=== PATIENT | male | born 1975 | race Hispanic/Latino ===

== ENCOUNTER 2018-03-01 06:59 | Observation (INO) | payer SELFPAY ==
[2018-03-01] MEDS ORDERED: Sodium Chloride 0.9% 1,000 ML IV STA ×3 (07:28→10:25)
--- NOTE | 2018-03-01 07:50 | ED PDOC ---
HPI: Altered Mental Status Time Seen by Provider: 03/01/18 07:09 Chief Complaint (Nursing): Altered Mental Status Chief Complaint (Provider): Aggression History Per: Patient, EMS History/Exam Limitations: Clinical Condition Onset/Duration Of Symptoms: Mins (prior to arrival) Additional Complaint(s): 42 year old male presents to the emergency department via EMS after he reports what happened was he threw a remote at the television while arguing with his , prompting her to call the ambulance. Per EMS and his staff however, the patient may have taken drugs, but it is unclear what type. Patient currently denies taking drugs or alcohol. He also denies suicidal and homicidal ideation. Denies any chest pain, dyspnea, weakness, headaches, dizziness, fall, abd pain , nausea, vomit, diarrhea. No leg or arm pain. No back pain. PMD: none provided Past Medical History Reviewed: Historical Data, Nursing Documentation, Vital Signs Vital Signs: Last Vital Signs Temp 98.2 F 03/01/18 07:03 Pulse 128 H 03/01/18 07:17 Resp 27 H 03/01/18 07:17 BP 136/84 03/01/18 07:17 Pulse Ox 95 03/01/18 07:17 - Medical History PMH: Denies: Bipolar Disorder, Schizophrenia - Surgical History Surgical History: Cholecystectomy - Family History Family History: States: Unknown Family Hx - Social History Current smoker - smoking cessation education provided: No Alcohol: Social Drugs: Denies - Allergies Allergies/Adverse Reactions: Allergies Allergy/AdvReac Type Severity Reaction Status Date / Time No Known Allergies Allergy Verified 03/01/18 07:24 Review of Systems ROS Statement: Except As Marked, All Systems Reviewed And Found Negative Constitutional: Negative for: Weakness Eyes: Negative for: Vision Change ENT: Negative for: Nose Congestion Cardiovascular: Negative for: Chest Pain Respiratory: Negative for: Shortness of Breath Musculoskeletal: Negative for: Neck Pain, Shoulder Pain Neurological: Negative for: Weakness Physical Exam - Reviewed Nursing Documentation Reviewed: Yes Vital Signs Reviewed: Yes - Physical Exam Appears: Positive for: Uncomfortable Head Exam: Positive for: ATRAUMATIC, NORMAL INSPECTION, NORMOCEPHALIC Skin: Positive for: Normal Color, Warm, Dry Eye Exam: Positive for: EOMI, Normal appearance, PERRL ENT: Positive for: Normal ENT Inspection Neck: Positive for: Normal, Painless ROM Cardiovascular/Chest: Positive for: Regular Rate, Rhythm. Negative for: Murmur Respiratory: Positive for: Normal Breath Sounds. Negative for: Respiratory Distress Gastrointestinal/Abdominal: Positive for: Other (6cm abrasion to left lateral abdomen with ecchymosis, but nontender). Negative for: Tenderness Back: Positive for: Normal Inspection. Negative for: L CVA Tenderness, R CVA Tenderness Extremity: Positive for: Normal ROM Neurologic/Psych: Positive for: Alert, Oriented, Other (follows most commands, moving all extremities) - Laboratory Results Result Diagrams: 03/01/18 07:40 03/01/18 07:40 Interpretation Of Abn Labs: no acute - ECG ECG: Positive for: Interpreted By Me, Viewed By Me ECG Rhythm: Positive for: Normal QRS, Normal ST Segment, Sinus Tachycardia Interpretation Of Abn EKG: repeat ekg; sinus tach, qtc 490 from old to new 511; qrs remains 102 O2 Sat by Pulse Oximetry: 95 (RA) Pulse Ox Interpretation: Normal - Radiology X-Ray: Read By Radiologist X-Ray Interpretation: No Acute Disease - CT Scan/US ct Other Rad Studies (CT/US): Read By Radiologist Other Rad Interpretation: no acute - Progress ED Course And Treament: 1035: Pt. present now. States pt. mother sent him some meds to take for being sad and stressed. She has bipolar and not sure what meds she sent him. Pt. now admits to taking unasom 7 pills 12 hrs ago. Denies taking any other drugs or meds. Pt. found a suicidal note. Spoke with poison control. Repeat EKG 1200. Continue monitoring with symptomatic tx. Bicarb if repeat ekg is 120 or greater qrs. 1230: Spoke with Dr. Casey. Will admit. Monitor. Tele. Stable. - Critical Care Total Time (In Min): 30 Documented Critical Care: Time excludes all time spent performint seperately billable procedures Medical Decision Making Medical Decision Making: Time: 7:27 Initial Plan: --CT Abd/Pel --C-spine w/o contrast --CT Head w/o contrast --EKG --Alcohol Serum --CMP --Drug Screen --Trop 1 --Urine dip --CBC with differential --Chest Portable XR --Sodium Chloride 0.9% 1000ml IV --POC --1:1 Observation Time: 8:45 Chest XR FINDINGS: LUNGS: No active pulmonary disease. PLEURA: No significant pleural effusion identified, no pneumothorax apparent. CARDIOVASCULAR: Normal. OSSEOUS STRUCTURES: No significant abnormalities. VISUALIZED UPPER ABDOMEN: Normal. OTHER FINDINGS: None. IMPRESSION: No active disease. Time: 8:[address] FINDINGS: HEMORRHAGE: No intracranial hemorrhage. BRAIN: No mass effect or edema. No atrophy or chronic microvascular ischemic changes. VENTRICLES: Unremarkable. No hydrocephalus. CALVARIUM: Unremarkable. PARANASAL SINUSES: Right worse than left bilateral maxillary sinus mucosal thickening. Right sphenoid sinus secretions. Bilateral ortega bullosa MASTOID AIR CELLS: Unremarkable as visualized. No inflammatory changes. OTHER FINDINGS: None. IMPRESSION: No acute intracranial pathology. Sinus disease as described above. Time: 8:52 Abd/Pelvis CT FINDINGS: LOWER THORAX: Unremarkable. LIVER: Unremarkable. No gross lesion or ductal dilatation. GALLBLADDER AND BILE DUCTS: Prior cholecystectomy and surgical clips in place. PANCREAS: Unremarkable. No gross lesion or ductal dilatation. SPLEEN: Unremarkable. ADRENALS: Left adrenal 1.0 x 0.8 cm adenoma (3 HU). KIDNEYS AND URETERS: Unremarkable. No hydronephrosis. No solid mass. VASCULATURE: Unremarkable. No aortic aneurysm. BOWEL: Unremarkable. No obstruction. No gross mural thickening. APPENDIX: Unremarkable. Normal appendix. PERITONEUM: Patchy infiltration of the left lateral abdominal wall subcutaneous soft tissues. No free fluid. No free air. LYMPH NODES: Unremarkable. No enlarged lymph nodes. BLADDER: Unremarkable. REPRODUCTIVE: Unremarkable. BONES: No acute fracture. OTHER FINDINGS: None. IMPRESSION: Patchy infiltration of the left lateral abdominal wall subcutaneous soft tissues. No evidence of acute traumatic injury to the abdomen and pelvis. Incidental findings as above Time: 8:56 C-sp[address] FINDINGS: VERTEBRAE: No fracture. Normal alignment. No destructive bony lesion. DISCS/SPINAL CANAL/NEURAL FORAMINA: No significant central canal or neural foraminal stenosis. Discs heights are grossly preserved. PARASPINAL SOFT TISSUES: Unremarkable. OTHER FINDINGS: None. IMPRESSION: Unremarkable CT of the cervical spine. Scribe Attestation: Documented by Yanely Lopez, acting as a scribe for Dr. Sarath Banuelos. Provider Scribe Attestation: All medical record entries made by the Scribe were at my direction and personally dictated by me. I have reviewed the chart and agree that the record accurately reflects my personal performance of the history, physical exam, medical decision making, and the department course for this patient. I have also personally directed, reviewed, and agree with the discharge instructions and disposition. Disposition - Clinical Impression Clinical Impression: Overdose, Suicidal thoughts - Patient ED Disposition Is Patient to be Admitted: No Counseled Patient/Family Regarding: Studies Performed, Diagnosis - Disposition Disposition: Routine/Home Disposition Time: 12:00 Condition: STABLE - Pt Status Changed To: Hospital Disposition Of: Observation - POA Present On Arrival: Falls Or Trauma
[2018-03-01 08:00] LABS: BASO % 0.3 % (0.0-2.0); LYMPH # 1.1 K/uL (1.0-4.3); LYMPH % 9.3 % (20.0-40.0); MEAN CELL VOLUME 90.5 fl (80.0-94.0); MEAN CORPUSCULAR HEMOGLOBIN 31.3 pg (27.0-31.0); MEAN CORPUSCULAR HGB CONC 34.6 g/dL (33.0-37.0); MONO # 0.6 K/uL (0.0-0.8); NEUT # 10.1 K/uL (1.8-7.0); NEUT % 85.4 % (50.0-75.0); PLATELET COUNT 269 K/uL (130-400); RBC 5.12 Mil/uL (4.40-5.90); RED CELL DISTRIBUTION WIDTH 13.4 % (11.5-14.5); WHITE BLOOD COUNT 11.9 K/uL (4.8-10.8)
[2018-03-01 08:05] LABS: ALB/GLOB RATIO 1.5 (1.0-2.1); ALBUMIN 4.7 g/dL (3.5-5.0); ALT/SGPT 63 U/L (21-72); AST/SGOT 47 U/L (17-59); BLOOD UREA NITROGEN 15 mg/dl (9-20); CALCIUM 9.6 mg/dL (8.4-10.2); GFR AFRICAN-AMERICAN > 60; GFR NON-AFRICAN AMERICAN > 60
--- NOTE | 2018-03-01 08:46 | RAD ---
HISTORY: dyspnea COMPARISON: No prior. FINDINGS: LUNGS: No active pulmonary disease. PLEURA: No significant pleural effusion identified, no pneumothorax apparent. CARDIOVASCULAR: Normal. OSSEOUS STRUCTURES: No significant abnormalities. VISUALIZED UPPER ABDOMEN: Normal. OTHER FINDINGS: None. IMPRESSION: No active disease.
--- NOTE | 2018-03-01 08:54 | CT ---
PROCEDURE: CT Abdomen and Pelvis without intravenous contrast HISTORY: abd trauma COMPARISON: None. TECHNIQUE: Contiguous images were obtained from the domes of the diaphragms to the upper thighs without the administration of intravenous contrast. Oral contrast was not administered. Radiation dose: Total exam DLP = 886.6 mGy-cm. This CT exam was performed using one or more of the following dose reduction techniques: Automated exposure control, adjustment of the mA and/or kV according to patient size, and/or use of iterative reconstruction technique. FINDINGS: LOWER THORAX: Unremarkable. LIVER: Unremarkable. No gross lesion or ductal dilatation. GALLBLADDER AND BILE DUCTS: Prior cholecystectomy and surgical clips in place. PANCREAS: Unremarkable. No gross lesion or ductal dilatation. SPLEEN: Unremarkable. ADRENALS: Left adrenal 1.0 x 0.8 cm adenoma (3 HU). KIDNEYS AND URETERS: Unremarkable. No hydronephrosis. No solid mass. VASCULATURE: Unremarkable. No aortic aneurysm. BOWEL: Unremarkable. No obstruction. No gross mural thickening. APPENDIX: Unremarkable. Normal appendix. PERITONEUM: Patchy infiltration of the left lateral abdominal wall subcutaneous soft tissues. No free fluid. No free air. LYMPH NODES: Unremarkable. No enlarged lymph nodes. BLADDER: Unremarkable. REPRODUCTIVE: Unremarkable. BONES: No acute fracture. OTHER FINDINGS: None. IMPRESSION: Patchy infiltration of the left lateral abdominal wall subcutaneous soft tissues. No evidence of acute traumatic injury to the abdomen and pelvis. Incidental findings as above
--- NOTE | 2018-03-01 08:55 | CT ---
PROCEDURE: CT HEAD WITHOUT CONTRAST. HISTORY: headache COMPARISON: None available. TECHNIQUE: Axial computed tomography images were obtained through the head/brain without intravenous contrast. Radiation dose: Total exam DLP = 1078.4 mGy-cm. This CT exam was performed using one or more of the following dose reduction techniques: Automated exposure control, adjustment of the mA and/or kV according to patient size, and/or use of iterative reconstruction technique. FINDINGS: HEMORRHAGE: No intracranial hemorrhage. BRAIN: No mass effect or edema. No atrophy or chronic microvascular ischemic changes. VENTRICLES: Unremarkable. No hydrocephalus. CALVARIUM: Unremarkable. PARANASAL SINUSES: Right worse than left bilateral maxillary sinus mucosal thickening. Right sphenoid sinus secretions. Bilateral ortega bullosa MASTOID AIR CELLS: Unremarkable as visualized. No inflammatory changes. OTHER FINDINGS: None. IMPRESSION: No acute intracranial pathology. Sinus disease as described above.
--- NOTE | 2018-03-01 08:57 | CT ---
PROCEDURE: CT Cervical Spine without contrast HISTORY: neck pain COMPARISON: None available. TECHNIQUE: Axial computed tomography images were obtained of the cervical spine without the use of intravenous contrast. Coronal and sagittal reformatted images were created and reviewed. Radiation dose: Total exam DLP = 576.2 mGy-cm. This CT exam was performed using one or more of the following dose reduction techniques: Automated exposure control, adjustment of the mA and/or kV according to patient size, and/or use of iterative reconstruction technique. FINDINGS: VERTEBRAE: No fracture. Normal alignment. No destructive bony lesion. DISCS/SPINAL CANAL/NEURAL FORAMINA: No significant central canal or neural foraminal stenosis. Discs heights are grossly preserved. PARASPINAL SOFT TISSUES: Unremarkable. OTHER FINDINGS: None. IMPRESSION: Unremarkable CT of the cervical spine.
[2018-03-01 09:31] LABS: ANISOCYTOSIS SLIGHT; LYMPHOCYTE 11 % (20-50); MONOCYTE 4 % (0-10); NEUTROPHIL 85 % (42-75); OVALOCYTES SLIGHT; PLATELET ESTIMATE NORMAL (NORMAL); TEARDROP CELLS SLIGHT; TOTAL CELLS COUNTED 100
[2018-03-01 09:32] LABS: LARGE PLATELETS PRESENT
[2018-03-01 09:56] LABS: PHENCYCLIDINE, UR NEGATIVE (NEGATIVE)
[2018-03-01 10:00] LABS: BARBITURATES, UR NEGATIVE (NEGATIVE); BENZODIAZEPINES, UR POSITIVE (NEGATIVE); OPIATES, UR NEGATIVE (NEGATIVE)
--- NOTE | 2018-03-01 10:10 | CARD ---
APPROVED REPORT EKG Measurement Heart [id number] <Conclusion> Sinus tachycardia Otherwise normal ECG
[2018-03-01 11:00] LABS: ACETAMINOPHEN < 10.0 ug/ml (10.0-30.0); SALICYLATE < 1.0 mg/dl
--- NOTE | 2018-03-01 12:51 | CP.PCM.HP ---
History of Present Illness - History of Present Illness History of Present Illness: 42 yo male with no significant PMH brought in by EMS with possible drug overdosed. Apparently took several pills of Unisom plus Ativan and Klonopin. Patient however continue changing his statement. Patient denied any complaint but ER physician noted some mild confusion and was tachycardic. Denied being suicidal. Present on Admission - Present on Admission Any Indicators Present on Admission: No History of DVT/PE: No History of Uncontrolled Diabetes: No Urinary Catheter: No Decubitus Ulcer Present: No Review of Systems - Review of Systems All systems: reviewed and no additional remarkable complaints except (aside from those mentioned above, 12 point system review were negative by me) Past Patient History - Tetanus Immunizations Tetanus Immunization: Unknown - Past Medical History & Family History Past Medical History?: No Past Family History: Reviewed and not pertinent - Past Social History Smoking Status: Never Smoked Chewing Tobacco Use: No Cigar Use: No Alcohol: Social Drugs: Denies Home Situation {Lives}: With Family - PSYCHIATRIC Hx Bipolar Disorder: No Hx Schizophrenia: No - SURGICAL HISTORY Hx Cholecystectomy: Yes - ANESTHESIA Hx Anesthesia: Yes Hx Anesthesia Reactions: No Meds Allergies/Adverse Reactions: Allergies Allergy/AdvReac Type Severity Reaction Status Date / Time No Known Allergies Allergy Verified 03/01/18 07:24 Physical Exam - Constitutional Appears: No Acute Distress - Head Exam Head Exam: ATRAUMATIC - Eye Exam Eye Exam: absent: Scleral icterus - ENT Exam ENT Exam: Mucous Membranes Moist - Neck Exam Neck exam: Negative for: Meningismus - Respiratory Exam Respiratory Exam: absent: Rales, Rhonchi, Wheezes, Respiratory Distress - Cardiovascular Exam Cardiovascular Exam: Tachycardia - GI/Abdominal Exam GI & Abdominal Exam: Soft. absent: Tenderness - Rectal Exam Rectal Exam: Deferred - Extremities Exam Extremities exam: Negative for: calf tenderness, pedal edema - Back Exam Back exam: NORMAL INSPECTION - Neurological Exam Neurological exam: Alert, Oriented x3 - Psychiatric Exam Psychiatric exam: Normal Affect - Skin Skin Exam: Dry, Intact Results - Vital Signs Recent Vital Signs: Last Vital Signs Temp 98.2 F 03/01/18 07:03 Pulse 111 H 03/01/18 12:11 Resp 16 03/01/18 12:11 BP 147/87 03/01/18 12:11 Pulse Ox 95 03/01/18 12:42 - Labs Result Diagrams: 03/01/18 07:40 03/01/18 07:40 Labs: Laboratory Results - last 24 hr 03/01/18 03/01/18 03/01/18 07:40 07:40 07:40 WBC 11.9 H RBC 5.12 Hgb 16.0 Hct 46.3 MCV 90.5 MCH 31.3 H MCHC 34.6 RDW 13.4 Plt Count 269 MPV 7.0 L Neut % (Auto) 85.4 H Lymph % (Auto) 9.3 L [place] % (Auto) 5.0 Eos % (Auto) 0.0 Baso % (Auto) 0.3 Neut # (Auto) 10.1 H Lymph # (Auto) 1.1 [place] # (Auto) 0.6 Eos # (Auto) 0.0 Baso # (Auto) 0.0 Neutrophils % (Manual) 85 H Lymphocytes % (Manual) 11 L Monocytes % (Manual) 4 Platelet Estimate Normal Large Platelets Present Anisocytosis (manual) Slight Macrocytosis (manual) Slight Tear Drop Cells Slight Ovalocytes Slight Sodium 140 Potassium 3.7 Chloride 98 Carbon Dioxide 22 Anion Gap 24 H BUN 15 Creatinine 1.0 Est GFR ( Amer) > 60 Est GFR (Non-Af Amer) > 60 POC Glucose (mg/dL) Random Glucose 104 Calcium 9.6 Magnesium Total Bilirubin 1.1 AST 47 ALT 63 Alkaline Phosphatase 67 Troponin I 0.0180 Total Protein 7.8 Albumin 4.7 Globulin 3.1 Albumin/Globulin Ratio 1.5 Salicylates < 1.0 Urine Opiates Screen Urine Methadone Screen Acetaminophen < 10.0 L Ur Barbiturates Screen Ur Phencyclidine Scrn Ur Amphetamines Screen U Benzodiazepines Scrn U Oth Cocaine Metabols U Cannabinoids Screen Alcohol, Quantitative < 10 03/01/18 03/01/18 03/01/18 08:16 09:20 10:54 WBC RBC Hgb Hct MCV MCH MCHC RDW Plt Count MPV Neut % (Auto) Lymph % (Auto) [place] % (Auto) Eos % (Auto) Baso % (Auto) Neut # (Auto) Lymph # (Auto) [place] # (Auto) Eos # (Auto) Baso # (Auto) Neutrophils % (Manual) Lymphocytes % (Manual) Monocytes % (Manual) Platelet Estimate Large Platelets Anisocytosis (manual) Macrocytosis (manual) Tear Drop Cells Ovalocytes Sodium Potassium Chloride Carbon Dioxide Anion Gap BUN Creatinine Est GFR ( Amer) Est GFR (Non-Af Amer) POC Glucose (mg/dL) 89 Random Glucose Calcium Magnesium 1.8 Total Bilirubin AST ALT Alkaline Phosphatase Troponin I Total Protein Albumin Globulin Albumin/Globulin Ratio Salicylates Urine Opiates Screen Negative Urine Methadone Screen Negative Acetaminophen Ur Barbiturates Screen Negative Ur Phencyclidine Scrn Negative Ur Amphetamines Screen Negative U Benzodiazepines Scrn Positive U Oth Cocaine Metabols Negative U Cannabinoids Screen Negative Alcohol, Quantitative Assessment & Plan - Assessment and Plan (Free Text) Assessment: 42 yo male with no significant PMH brought in by EMS with possible drug overdosed. Apparently took several pills of Unisom plus Ativan and Klonopin. Patient however continue changing his statement. Patient denied any complaint but ER physician noted some mild confusion and was tachycardic. Denied being suicidal. 1. Drug Overdosed 24 hr observation drug screen positive for Benzodiazephines continue IV hydration psyche consult monitor in telemetry
[2018-03-01] MEDS ORDERED: Sodium Chloride 0.9% 1,000 ML IV SCH (13:00)
[2018-03-02 05:32] LABS: BASO % 0.4 % (0.0-2.0); EOS # 0.2 K/uL (0.0-0.7); EOS % 2.4 % (0.0-4.0); LYMPH # 2.2 K/uL (1.0-4.3); LYMPH % 26.4 % (20.0-40.0); MEAN CELL VOLUME 91.8 fl (80.0-94.0); MEAN CORPUSCULAR HEMOGLOBIN 31.8 pg (27.0-31.0); MEAN CORPUSCULAR HGB CONC 34.7 g/dL (33.0-37.0); MEAN PLATELET VOLUME 7.1 fl (7.2-11.7); MONO # 1.2 K/uL (0.0-0.8); MONO % 13.9 % (0.0-10.0); NEUT # 4.8 K/uL (1.8-7.0); NEUT % 56.9 % (50.0-75.0); NRBC % 0.1 % (0.0-0.0); RBC 4.41 Mil/uL (4.40-5.90); RED CELL DISTRIBUTION WIDTH 13.4 % (11.5-14.5); WHITE BLOOD COUNT 8.5 K/uL (4.8-10.8)
[2018-03-02 05:45] LABS: BLOOD UREA NITROGEN 10 mg/dl (9-20); CALCIUM 8.4 mg/dL (8.4-10.2); GFR AFRICAN-AMERICAN > 60; GFR NON-AFRICAN AMERICAN > 60
--- NOTE | 2018-03-02 07:18 | CARD ---
APPROVED REPORT EKG Measurement Heart [id number] <Conclusion> Sinus tachycardia Otherwise normal ECG
[2018-03-02 08:21] VITALS: RESP 20
[2018-03-02] MEDS ORDERED: Enoxaparin 40 mg Syringe SC SCH (09:00)
[2018-03-02] MEDS ORDERED: Potassium Chloride 20 mEq ER Tab PO ONE (10:52)
--- NOTE | 2018-03-02 12:00 | CP.PCM.CON ---
History of Present Illness - History of Present Illness History of Present Illness: pt is 42 yo male without formal psychiatric diagnosis or treatment , brought in by EMS with possible drug overdosed. Apparently took several pills of Unisom plus Ativan and Klonopin.pt reported that this is his mother's medications , he decided to use as he was feeling stressed out in his job, having sleep problems with early insomnia and only took the medications in an attempt to relax and sleep pt reported he has history of generalized anxiety disorder, has been seen by psychiatrist 7 years ago, placed on klonopin and , currently not in treatment for insurance issues reported has history of alcohol use started at age 18, currently binge drinks which resulted in conflict between him and his current stressors include work stress financial difficulties , and marital conflict with plan to seek marital counseling, pt denied any previous suicidal attempts, no history of previous psychiatric hospitalizations, no current changes in appetite , no manic or psychotic symptoms, no history of blackouts or seizures related to alcohol use collateral information obtained from by bed side upon patient consent reported pt has been using increasing amounts of alcohol lately , but denied any concerns in reference to depression or possible suicide attempt stating pt possibly abusing his mother's medications to treat his insomnia Past Patient History - Tetanus Immunizations Tetanus Immunization: Unknown - Past Medical History & Family History Past Medical History?: No - Past Social History Smoking Status: Never Smoked - MUSCULOSKELETAL/RHEUMATOLOGICAL Hx Falls: No - PSYCHIATRIC Hx Psychophysiologic Disorder: Yes Hx Anxiety: Yes Hx Depression: Yes Hx Substance Use: No - SURGICAL HISTORY Hx Cholecystectomy: Yes - ANESTHESIA Hx Anesthesia: Yes Hx Anesthesia Reactions: No Meds Allergies/Adverse Reactions: Allergies Allergy/AdvReac Type Severity Reaction Status Date / Time No Known Allergies Allergy Verified 03/01/18 07:24 - Medications Medications: Current Medications Enoxaparin Sodium (Lovenox) 40 mg SC DAILY CAROLE PRN Reason: Protocol Last Admin: 03/02/18 10:45 Dose: 40 mg Sodium Chloride (Sodium Chloride 0.9%) 1,000 mls @ 200 mls/hr IV .Q5H [facility] Last Admin: 03/01/18 13:40 Dose: 200 mls/hr Physical Exam - Psychiatric Exam Additional comments: pt seen in bed calm cooperative, good eye contact, anxious mood and affect , speech normal thought form coherent denied any current suicidal or homicidal ideation, denied perceptual disturbances, non elicited , alert awake ox3 fair insight and judgment Results - Vital Signs Recent Vital Signs: Last Vital Signs Temp 98.1 F 03/02/18 08:20 Pulse 94 H 03/02/18 08:20 Resp 20 03/02/18 08:20 BP 143/87 03/02/18 08:20 Pulse Ox 97 03/02/18 08:20 - Labs Result Diagrams: 03/02/18 04:55 03/02/18 04:55 Labs: Laboratory Results - last 24 hr 03/02/18 03/02/18 04:55 04:55 WBC 8.5 RBC 4.41 Hgb 14.0 D Hct 40.5 MCV 91.8 MCH 31.8 H MCHC 34.7 RDW 13.4 Plt Count 207 MPV 7.1 L Neut % (Auto) 56.9 Lymph % (Auto) 26.4 [place] % (Auto) 13.9 H Eos % (Auto) 2.4 Baso % (Auto) 0.4 Neut # (Auto) 4.8 Lymph # (Auto) 2.2 [place] # (Auto) 1.2 H Eos # (Auto) 0.2 Baso # (Auto) 0.0 Sodium 139 Potassium 3.4 L Chloride 104 Carbon Dioxide 26 Anion Gap 12 BUN 10 Creatinine 1.1 Est GFR ( Amer) > 60 Est GFR (Non-Af Amer) > 60 Random Glucose 93 Calcium 8.4 Assessment & Plan - Assessment and Plan (Free Text) Assessment: generalized anxiety disorder alcohol use disorder 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
[2018-03-02 12:29] VITALS: BP 136/87; PULSE 89; TEMP 98.4; O2SAT 96
--- NOTE | 2018-03-02 12:34 | CP.PCM.DIS ---
Provider - Provider Date of Admission: 03/01/18 13:22 Attending physician: Alvin Casey MD Consults: Dr Weinstein Time Spent in preparation of Discharge (in minutes): 25 Diagnosis - Discharge Diagnosis (1) Suicidal thoughts Status: Acute Comment: need follow up on psychiatry clinic (2) Alcoholism /alcohol abuse Status: Acute Comment: referral to AA arranged by [facility] Course - Lab Results Lab Results: Most Recent Lab Values WBC 8.5 K/uL (4.8-10.8) 03/02/18 04:55 RBC 4.41 Mil/uL (4.40-5.90) 03/02/18 04:55 Hgb 14.0 g/dL (12.0-18.0) D 03/02/18 04:55 Hct 40.5 % (35.0-51.0) 03/02/18 04:55 MCV 91.8 fl (80.0-94.0) 03/02/18 04:55 MCH 31.8 pg (27.0-31.0) H 03/02/18 04:55 MCHC 34.7 g/dL (33.0-37.0) 03/02/18 04:55 RDW 13.4 % (11.5-14.5) 03/02/18 04:55 Plt Count 207 K/uL (130-400) 03/02/18 04:55 MPV 7.1 fl (7.2-11.7) L 03/02/18 04:55 Neut % (Auto) 56.9 % (50.0-75.0) 03/02/18 04:55 Lymph % (Auto) 26.4 % (20.0-40.0) 03/02/18 04:55 [place] % (Auto) 13.9 % (0.0-10.0) H 03/02/18 04:55 Eos % (Auto) 2.4 % (0.0-4.0) 03/02/18 04:55 Baso % (Auto) 0.4 % (0.0-2.0) 03/02/18 04:55 Neut # (Auto) 4.8 K/uL (1.8-7.0) 03/02/18 04:55 Lymph # (Auto) 2.2 K/uL (1.0-4.3) 03/02/18 04:55 [place] # (Auto) 1.2 K/uL (0.0-0.8) H 03/02/18 04:55 Eos # (Auto) 0.2 K/uL (0.0-0.7) 03/02/18 04:55 Baso # (Auto) 0.0 K/uL (0.0-0.2) 03/02/18 04:55 Neutrophils % (Manual) 85 % (42-75) H 03/01/18 07:40 Lymphocytes % (Manual) 11 % (20-50) L 03/01/18 07:40 Monocytes % (Manual) 4 % (0-10) 03/01/18 07:40 Platelet Estimate Normal (NORMAL) 03/01/18 07:40 Large Platelets Present 03/01/18 07:40 Anisocytosis (manual) Slight 03/01/18 07:40 Macrocytosis (manual) Slight 03/01/18 07:40 Tear Drop Cells Slight 03/01/18 07:40 Ovalocytes Slight 03/01/18 07:40 Sodium 139 mmol/l (132-148) 03/02/18 04:55 Potassium 3.4 MMOL/L (3.6-5.0) L 03/02/18 04:55 Chloride 104 mmol/L (98-107) 03/02/18 04:55 Carbon Dioxide 26 mmol/L (22-30) 03/02/18 04:55 Anion Gap 12 (10-20) 03/02/18 04:55 BUN 10 mg/dl (9-20) 03/02/18 04:55 Creatinine 1.1 mg/dl (0.8-1.5) 03/02/18 04:55 Est GFR ( Amer) > 60 03/02/18 04:55 Est GFR (Non-Af Amer) > 60 03/02/18 04:55 POC Glucose (mg/dL) 89 mg/dL (65-110) 03/01/18 08:16 Random Glucose 93 mg/dL (75-110) 03/02/18 04:55 Calcium 8.4 mg/dL (8.4-10.2) 03/02/18 04:55 Magnesium 1.8 MG/DL (1.6-2.3) 03/01/18 10:54 Total Bilirubin 1.1 mg/dl (0.2-1.3) 03/01/18 07:40 AST 47 U/L (17-59) 03/01/18 07:40 ALT 63 U/L (21-72) 03/01/18 07:40 Alkaline Phosphatase 67 U/L (38-126) 03/01/18 07:40 Troponin I 0.0180 ng/mL (0.00-0.120) 03/01/18 07:40 Total Protein 7.8 G/DL (6.3-8.2) 03/01/18 07:40 Albumin 4.7 g/dL (3.5-5.0) 03/01/18 07:40 Globulin 3.1 gm/dL (2.2-3.9) 03/01/18 07:40 Albumin/Globulin Ratio 1.5 (1.0-2.1) 03/01/18 07:40 Salicylates < 1.0 mg/dl 03/01/18 07:40 Urine Opiates Screen Negative (NEGATIVE) 03/01/18 09:20 Urine Methadone Screen Negative (NEGATIVE) 03/01/18 09:20 Acetaminophen < 10.0 ug/ml (10.0-30.0) L 03/01/18 07:40 Ur Barbiturates Screen Negative (NEGATIVE) 03/01/18 09:20 Ur Phencyclidine Scrn Negative (NEGATIVE) 03/01/18 09:20 Ur Amphetamines Screen Negative (NEGATIVE) 03/01/18 09:20 U Benzodiazepines Scrn Positive (NEGATIVE) 03/01/18 09:20 U Oth Cocaine Metabols Negative (NEGATIVE) 03/01/18 09:20 U Cannabinoids Screen Negative (NEGATIVE) 03/01/18 09:20 Alcohol, Quantitative < 10 mg/dl (0-10) 03/01/18 07:40 - Hospital Course Hospital Course: 42 yo male with no significant PMH admitted because of possible drug overdosed. Reported to have taken a number of Unisom, Ativan and Klonopin. Ativan and Klonopin were his mother's prescription. He denied suicidal intent and only took them because he was under a lot of stress and wanted to relax and sleep. Patient was seen by Dr Weinstein, psychiatrist and cleared patient for discharge. She advised outpatient psychiatry follow up for his alcoholism and depression. Discharge Exam - Head Exam Head Exam: ATRAUMATIC, NORMAL INSPECTION, NORMOCEPHALIC - Eye Exam Eye Exam: absent: Scleral icterus - ENT Exam ENT Exam: Mucous Membranes Moist - Respiratory Exam Respiratory Exam: absent: Rales, Rhonchi, Wheezes, Respiratory Distress - Cardiovascular Exam Cardiovascular Exam: REGULAR RHYTHM, +S1, +S2 - GI/Abdominal Exam GI & Abdominal Exam: Soft. absent: Tenderness - Rectal Exam Rectal Exam: Deferred - Back Exam Back exam: NORMAL INSPECTION - Neurological Exam Neurological exam: Alert, Oriented x3 - Psychiatric Exam Psychiatric exam: Normal Affect Discharge Plan - Follow Up Plan Condition: STABLE Disposition: HOME/ ROUTINE Instructions: Suicide Prevention for Adults (DC), Suicide Prevention for Adults (GEN)
== END 2018-03-02 13:30 | disposition home or self-care (01) ==
LOC: H.ER 06:59 → H.ERHOLD 13:22 → H.TEL 15:30
DX: R41.0 Disorientation, unspecified (principal); F41.1 Generalized anxiety disorder; F10.20 Alcohol dependence, uncomplicated; F32.9 Major depressive disorder, single episode, unspecified; R45.851 Suicidal ideations; Y90.0 Blood alcohol level of less than 20 mg/100 ml; R00.0 Tachycardia, unspecified
CPT/HCPCS: 36415; 70450; 71045; 72125; 74176; 80048; 80053; 82948; 83735; 84484; 85025; 93005; 96360; 96361; 96372; 99285; G0378; G0480; J1650; J7040

== ENCOUNTER 2018-05-20 12:38 | Emergency (ER) | payer OTHER ==
[2018-05-20 12:52] VITALS: BP 143/95; PULSE 84; RESP 18; TEMP 98; O2SAT 100
[2018-05-20] MEDS ORDERED: Lidocaine PF 2% (5 ml) Inj (For Cardiac Arrhy) ONE (13:32)
[2018-05-20] MEDS ORDERED: Tdap Vaccine 0.5 ml Vial (10-64 yrs) IM ONE (14:00)
[2018-05-20] MEDS ORDERED: Lidocaine 2% MPF (5 ml) Inj INFIL STA (14:01)
--- NOTE | 2018-05-20 14:05 | ED PDOC ---
Upper Extremity Pain/Injury Time Seen by Provider: 05/20/18 12:42 Chief Complaint (Nursing): Abnormal Skin Integrity Chief Complaint (Provider): Right Thumb Laceration History Per: Patient History/Exam Limitations: no limitations Onset/Duration Of Symptoms: Days (x1) Current Symptoms Are (Timing): Still Present Additional Complaint(s): 43-year-old male presenting for evaluation of a right thumb laceration prior to arrival. Patient states he cut his right thumb on a metal railing. He reports his last Tetanus was 6-7 years ago and denies any current bleeding. Past Medical History Reviewed: Historical Data, Nursing Documentation, Vital Signs Vital Signs: Last Vital Signs Temp 98 F 05/20/18 12:49 Pulse 84 05/20/18 12:49 Resp 18 05/20/18 12:49 BP 143/95 H 05/20/18 12:49 Pulse Ox 100 05/20/18 12:49 - Medical History PMH: Anxiety, Depression Denies: Bipolar Disorder, Schizophrenia - Surgical History Surgical History: Cholecystectomy - Family History Family History: States: Unknown Family Hx - Immunization History Hx Tetanus Toxoid Vaccination: No - Home Medications Home Medications: Ambulatory Orders Medication Instructions Recorded Cephalexin [Keflex] 500 mg PO BID #14 capsule 05/20/18 - Allergies Allergies/Adverse Reactions: Allergies Allergy/AdvReac Type Severity Reaction Status Date / Time No Known Allergies Allergy Verified 05/20/18 12:49 Review of Systems ROS Statement: Except As Marked, All Systems Reviewed And Found Negative Skin: Positive for: Lesions (2.5 cm right thumb laceration) Physical Exam - Reviewed Nursing Documentation Reviewed: Yes Vital Signs Reviewed: Yes - Physical Exam Appears: Positive for: Non-toxic, No Acute Distress Head Exam: Positive for: ATRAUMATIC Skin: Positive for: Normal Color, Warm Eye Exam: Positive for: Normal appearance Neck: Positive for: Normal Respiratory: Negative for: Respiratory Distress Extremity: Positive for: Other (2.5 cm curvilinear laceration/flap on right thumb, no active bleeding) Neurologic/Psych: Positive for: Alert - ECG O2 Sat by Pulse Oximetry: 100 (RA) Pulse Ox Interpretation: Normal Medical Decision Making Medical Decision Making: Plan: -Tetanus -Lidocaine without Epi Patient tolerated procedure well and without complication. Pt declined tetanus vaccine. Order cancelled. Scribe Attestation: Documented by Patrice Ryan, acting as a scribe for Coty Wu PA-C. Provider Scribe Attestation: All medical record entries made by the scribe were at my direction and personally dictated by me. I have reviewed the chart and agree that the record accurately reflects my personal performance of the history, physical exam, medical decision making, and the department course for this patient. I have also personally directed, reviewed, and agree with the discharge instructions and disposition. Procedures - Laceration/Wound Repair Right Thumb Laceration Wound's Depth, Shape: linear (curvilinear), flap Anesthesia: 1% Lidocaine Volume Anesthetic (ccs): 1 Suture Size/Type: 4:0, proline Number of Sutures: 3 Wound Complexity: Simple Disposition - Clinical Impression Clinical Impression: Thumb laceration - Patient ED Disposition Is Patient to be Admitted: No Counseled Patient/Family Regarding: Diagnosis, Need For Followup - Disposition Referrals: Danilo Stout MD [Staff Provider] - Disposition: Routine/Home Disposition Time: 14:17 Condition: STABLE Additional Instructions: Keep clean and dry with antibiotic ointment. Suture removal in 10-14 days. Prescriptions: Cephalexin [Keflex] 500 mg PO BID #14 capsule Instructions: Laceration Repair Forms: [facility] (Turkish)
== END 2018-05-20 15:51 | disposition home or self-care (01) ==
LOC: H.ER 12:38
DX: S61.011A Laceration without foreign body of right thumb without damage to nail, initial encounter (principal); W26.8XXA Contact with other sharp object(s), not elsewhere classified, initial encounter; Y92.89 Other specified places as the place of occurrence of the external cause; F32.9 Major depressive disorder, single episode, unspecified; F41.9 Anxiety disorder, unspecified

== ENCOUNTER 2018-05-21 19:37 | Inpatient (IN) | payer OTHER ==
[2018-05-21] MEDS ORDERED: Sodium Chloride 0.9% 1,000 ML IV STA ×2 (19:53→22:22)
[2018-05-21 20:24] LABS: BASO % 0.3 % (0.0-2.0); EOS % 0.2 % (0.0-4.0); LYMPH % 18.2 % (20.0-40.0); MEAN CELL VOLUME 89.5 fl (80.0-94.0); MEAN CORPUSCULAR HEMOGLOBIN 30.8 pg (27.0-31.0); MEAN CORPUSCULAR HGB CONC 34.4 g/dL (33.0-37.0); MEAN PLATELET VOLUME 7.1 fl (7.2-11.7); MONO # 0.5 K/uL (0.0-0.8); MONO % 4.3 % (0.0-10.0); NEUT # 8.3 K/uL (1.8-7.0); RBC 5.39 Mil/uL (4.40-5.90); RED CELL DISTRIBUTION WIDTH 13.3 % (11.5-14.5); WHITE BLOOD COUNT 10.8 K/uL (4.8-10.8)
[2018-05-21 20:25] LABS: PROTHROMBIN TIME 11.1 Seconds (9.8-13.1)
[2018-05-21 20:27] LABS: PARTIAL THROMBOPLASTIN TIME 25.7 Seconds (25.6-37.1)
[2018-05-21 20:28] LABS: HEMOGLOBIN 16.6 g/dL (12.0-18.0)
[2018-05-21 20:33] LABS: ACETAMINOPHEN < 10.0 ug/ml (10.0-30.0); SALICYLATE < 1.0 mg/dl
[2018-05-21 20:35] LABS: ALB/GLOB RATIO 1.6 (1.0-2.1); ALBUMIN 4.8 g/dL (3.5-5.0); ALT/SGPT 43 U/L (21-72); AST/SGOT 36 U/L (17-59); BLOOD UREA NITROGEN 17 mg/dl (9-20); CALCIUM 9.1 mg/dL (8.4-10.2); GFR AFRICAN-AMERICAN > 60; GFR NON-AFRICAN AMERICAN > 60
[2018-05-21 20:35] LABS: VENOUS BLOOD GAS BASE EXCESS -1.1 mmol/L (0.0-2.0); VENOUS BLOOD GAS PCO2 38 mmHg (40-60); VENOUS BLOOD GAS PO2 63 mm/Hg (30-55)
--- NOTE | 2018-05-21 22:29 | ED PDOC ---
HPI: Psych/Substance Abuse Time Seen by Provider: 05/21/18 19:49 Chief Complaint (Nursing): Substance Abuse Chief Complaint (Provider): possible overdose ED Caveat: Altered Mental Status, Intoxicated History Per: EMS History/Exam Limitations: clinical condition, intoxication Onset/Duration Of Symptoms: Unknown Current Symptoms Are (Timing): Still Present Suicide/Self Injury Attempted (Context): Ingestion Modifying Factor(s): Other (unknown) Severity: Moderate Associated Symptoms: Depression Involuntary Hold By: Emergency Physician Additional Complaint(s): 43yo male arrives w EMS, per EMS he ingested unknown amount of unknown pills, told EMS hes on "psych meds" but unknown specifics. Per EMS did not want to accompany to hospital. called at number listed but no answer, left message. Patient is awake but mildly agitated and not providing further history. Past Medical History Reviewed: Historical Data, Nursing Documentation, Vital Signs Vital Signs: Last Vital Signs Temp 99 F 05/21/18 19:44 Pulse 131 H 05/21/18 22:25 Resp 16 05/21/18 22:25 BP 156/93 H 05/21/18 22:25 Pulse Ox 97 05/21/18 22:25 - Medical History PMH: Anxiety, Depression Denies: Bipolar Disorder, Schizophrenia - Surgical History Surgical History: Cholecystectomy - Family History Family History: States: Unknown Family Hx - Living Arrangements Living Arrangements: With Family - Immunization History Hx Tetanus Toxoid Vaccination: No - Home Medications Home Medications: Ambulatory Orders Medication Instructions Recorded Cephalexin [Keflex] 500 mg PO BID #14 capsule 05/20/18 - Allergies Allergies/Adverse Reactions: Allergies Allergy/AdvReac Type Severity Reaction Status Date / Time No Known Allergies Allergy Verified 05/20/18 12:49 Review of Systems Review Of Systems: ROS cannot be obtained secondary to pt's inabilty to answer questions. Physical Exam - Reviewed Nursing Documentation Reviewed: Yes Vital Signs Reviewed: Yes - Physical Exam Appears: Positive for: Uncomfortable (agitated, awake but uncooperative) Head Exam: Positive for: ATRAUMATIC, NORMAL INSPECTION, NORMOCEPHALIC Skin: Positive for: Normal Color, Warm, DRY Eye Exam: Positive for: Normal appearance, EOMI, PERRL. Negative for: Periorbital swelling, Periorbital tenderness ENT: Positive for: Normal ENT Inspection Neck: Positive for: Normal, Painless ROM Cardiovascular/Chest: Positive for: Regular Rate, Rhythm Respiratory: Positive for: CNT, Normal Breath Sounds Gastrointestinal/Abdominal: Positive for: Soft. Negative for: Tenderness Back: Positive for: Normal Inspection Extremity: Positive for: Normal ROM. Negative for: Deformity, Swelling Neurologic/Psych: Positive for: Alert, Mood/Affect (agitated), Aphasia. Negative for: Oriented, Motor/Sensory Deficits, Facial Droop - Laboratory Results Result Diagrams: 05/21/18 20:12 05/21/18 20:12 - ECG ECG: Positive for: Interpreted By Me ECG Rhythm: Positive for: Sinus Tachycardia, Nonspecific Changes Rate: 141 O2 Sat by Pulse Oximetry: 97 Pulse Ox Interpretation: Normal - Critical Care Total Time (In Min): 45 Comments: patient required immediate and recurrent bedside attention due to overdose Medical Decision Making Medical Decision Making: workup for overdose initiated cardiac monitoring, 1:1 obs required ativan 2mg IV for relief of agitation, remained awake thereafter IVF bolus ordered labs reviewed etoh elevated 157 ASA/ tylenol neg pH normal WBC normal [employer] normal mg/ phos normal repeat EKG 1030p sinus tach 126bpm, QRS 104, QTc 480 poison control to be contacted MENDEL Fitzgerald d/w poison control rec repeat EKG, repeat lactate and if QRS widening next EKG initiate bicarb 1130p remains altered w dilated pupils and tachycardia 120s sinus tach. admit hospitalist Dr [place], case discussed 1140pm and care transferred remains 1:1 obs Disposition - Disposition Forms: [facility] (Uzbek)
[2018-05-21] MEDS ORDERED: Magnesium Sulfate 2 gm/50 ml 2 GM/50 ML BAG IVPB ONE (23:53)
[2018-05-22] MEDS ORDERED: Magnesium Sulfate 2 gm/50 ml 2 GM/50 ML BAG ONE (00:58)
--- NOTE | 2018-05-22 01:09 | CP.PCM.HP ---
History of Present Illness - History of Present Illness History of Present Illness: CC: poor historian due to substance intoxication HPI: 43yo male PMH overdose 3 months ago was brought to ED via EMS after ingesting an unknown amount of unknown pills. Per EMS did not wish to accompany patient to hospital; called, no answer. Patient is currently very poor historian, awake and answers "I don't know" to most questions and appears dazed with dilated pupils. UDS still pending, QTc prolonged on EKG. Patient to be placed on OBS for substance overdose, ETOH intoxication, and QTc prolongation. Psychiatry consult appreciated. Pt is reported to be on "psych meds" however it is unknown what medications. Tachycardic but stable. NAD. ROS: per HPI all other systems reviewed and negative Present on Admission - Present on Admission Any Indicators Present on Admission: No Past Patient History - Tetanus Immunizations Tetanus Immunization: Unknown - Past Medical History & Family History Past Medical History?: No - Past Social History Smoking Status: Never Smoked - MUSCULOSKELETAL/RHEUMATOLOGICAL Hx Falls: No - PSYCHIATRIC Hx Anxiety: Yes Hx Bipolar Disorder: No Hx Depression: Yes Hx Schizophrenia: No - SURGICAL HISTORY Hx Cholecystectomy: Yes - ANESTHESIA Hx Anesthesia: Yes Hx Anesthesia Reactions: No Meds Allergies/Adverse Reactions: Allergies Allergy/AdvReac Type Severity Reaction Status Date / Time No Known Allergies Allergy Verified 05/20/18 12:49 Physical Exam - Constitutional Appears: Non-toxic, No Acute Distress - Head Exam Head Exam: ATRAUMATIC, NORMOCEPHALIC - Eye Exam Eye Exam: EOMI, PERRL Pupil Exam: Mydriatic - ENT Exam ENT Exam: Mucous Membranes Moist, Normal Exam - Respiratory Exam Respiratory Exam: Clear to Auscultation Bilateral, NORMAL BREATHING PATTERN - Cardiovascular Exam Cardiovascular Exam: RRR, +S1, +S2 - GI/Abdominal Exam GI & Abdominal Exam: Normal Bowel Sounds, Soft. absent: Mass, Organomegaly, Tenderness - Extremities Exam Extremities exam: Positive for: normal capillary refill, pedal pulses present - Back Exam Back exam: absent: CVA tenderness (L), CVA tenderness (R) - Neurological Exam Neurological exam: Alert, Reflexes Normal - Psychiatric Exam Psychiatric exam: Flat Affect Additional comments: appears dazed - Skin Skin Exam: Dry, Warm Results - Vital Signs Recent Vital Signs: Last Vital Signs Temp 99 F 05/21/18 19:44 Pulse 141 H 05/21/18 23:54 Resp 16 05/21/18 22:25 BP 156/93 H 05/21/18 22:25 Pulse Ox 97 05/21/18 23:54 - Labs Result Diagrams: 05/21/18 20:12 05/21/18 20:12 Labs: Laboratory Results - last 24 hr 05/21/18 05/21/18 05/21/18 20:12 20:12 20:12 WBC 10.8 RBC 5.39 Hgb 16.6 D Hct 48.3 MCV 89.5 D MCH 30.8 MCHC 34.4 RDW 13.3 Plt Count 317 D MPV 7.1 L Neut % (Auto) 77.0 H Lymph % (Auto) 18.2 L [place] % (Auto) 4.3 Eos % (Auto) 0.2 Baso % (Auto) 0.3 Neut # (Auto) 8.3 H Lymph # (Auto) 2.0 [place] # (Auto) 0.5 Eos # (Auto) 0.0 Baso # (Auto) 0.0 PT INR APTT pO2 VBG pH VBG pCO2 VBG HCO3 VBG Total CO2 VBG O2 Sat (Calc) VBG Base Excess VBG Potassium Glucose Lactate FiO2 Sodium 141 Potassium 3.9 Chloride 104 Carbon Dioxide 21 L Anion Gap 20 BUN 17 Creatinine 1.0 Est GFR ( Amer) > 60 Est GFR (Non-Af Amer) > 60 Random Glucose 103 Calcium 9.1 Phosphorus 3.3 Magnesium 1.8 Total Bilirubin 0.9 AST 36 ALT 43 Alkaline Phosphatase 66 Troponin I < 0.0120 Total Protein 7.8 Albumin 4.8 Globulin 2.9 Albumin/Globulin Ratio 1.6 TSH 3rd Generation 1.03 Venous Blood Potassium Salicylates < 1.0 Acetaminophen < 10.0 L Alcohol, Quantitative 05/21/18 05/21/18 05/21/18 20:12 20:25 21:55 WBC RBC Hgb Hct MCV MCH MCHC RDW Plt Count MPV Neut % (Auto) Lymph % (Auto) [place] % (Auto) Eos % (Auto) Baso % (Auto) Neut # (Auto) Lymph # (Auto) [place] # (Auto) Eos # (Auto) Baso # (Auto) PT 11.1 INR 1.0 APTT 25.7 pO2 63 H VBG pH 7.40 VBG pCO2 38 L VBG HCO3 23.9 VBG Total CO2 24.7 VBG O2 Sat (Calc) 95.1 H VBG Base Excess -1.1 L VBG Potassium 3.8 Glucose 106 Lactate 3.7 H FiO2 21.0 Sodium 140.0 Potassium Chloride 101.0 Carbon Dioxide Anion Gap BUN Creatinine Est GFR ( Amer) Est GFR (Non-Af Amer) Random Glucose Calcium Phosphorus Magnesium Total Bilirubin AST ALT Alkaline Phosphatase Troponin I Total Protein Albumin Globulin Albumin/Globulin Ratio TSH 3rd Generation Venous Blood Potassium 3.8 Salicylates Acetaminophen Alcohol, Quantitative 157 H Assessment & Plan - Assessment and Plan (Free Text) Plan: 43yo male PMH overdose 3 months ago was brought to ED via EMS after ingesting an unknown amount of unknown pills. Per EMS did not wish to accompany patient to hospital; called, no answer. Patient is currently very poor historian, awake and answers "I don't know" to most questions and appears dazed with dilated pupils. UDS still pending, QTc prolonged on EKG. Patient to be placed on OBS for substance overdose, ETOH intoxication, and QTc prolongation. Psychiatry consult appreciated. Pt is reported to be on "psych meds" however it is unknown what medications. Tachycardic but stable. NAD. Substance Overdose Suicide Attempt? Etoh Intoxication QTc Prolongation - monitor on telemetry, tachycardic - UDS pending - ETOH 157 - Psych consult appreciated - 1:1 observation - lovenox DVT ppx - avoid QT prolongation drugs
[2018-05-22 01:13] LABS: VENOUS BLOOD GAS BASE EXCESS -3.4 mmol/L (0.0-2.0); VENOUS BLOOD GAS PCO2 37 mmHg (40-60); VENOUS BLOOD GAS PO2 59 mm/Hg (30-55); VENOUS BLOOD PH 7.37 (7.32-7.43)
[2018-05-22] MEDS ORDERED: Sodium Chloride 0.9% 1,000 ML IV SCH (01:45)
[2018-05-22 02:04] LABS: ALB/GLOB RATIO 1.6 (1.0-2.1); ALBUMIN 4.4 g/dL (3.5-5.0); ALT/SGPT 51 U/L (21-72); AST/SGOT 56 U/L (17-59); BLOOD UREA NITROGEN 14 mg/dl (9-20); CALCIUM 8.9 mg/dL (8.4-10.2); GFR AFRICAN-AMERICAN > 60; GFR NON-AFRICAN AMERICAN > 60
[2018-05-22 06:10] LABS: HEMOGLOBIN 15.1 g/dL (12.0-18.0); MEAN CELL VOLUME 90.3 fl (80.0-94.0); MEAN CORPUSCULAR HGB CONC 34.3 g/dL (33.0-37.0); RBC 4.89 Mil/uL (4.40-5.90); RED CELL DISTRIBUTION WIDTH 13.4 % (11.5-14.5); WHITE BLOOD COUNT 15.5 K/uL (4.8-10.8)
[2018-05-22 07:04] LABS: BLOOD UREA NITROGEN 13 mg/dl (9-20); CALCIUM 8.7 mg/dL (8.4-10.2); GFR AFRICAN-AMERICAN > 60; GFR NON-AFRICAN AMERICAN > 60
--- NOTE | 2018-05-22 07:51 | CP.PCM.CON ---
History of Present Illness - History of Present Illness History of Present Illness: Psychiatry consult note CC: "I had a fight with my ." HPI: 43 yo male w/ h/o overdose on medications (Xanax and benadryl) 3 months ago , presents after having a fight with his , walking to a balcony and making verbal threats to kill himself and taking 4 tablets of benadryl (25 mg x 4 tablets) as per patient report. He denies acute suicidal ideation plan/intent , but does admit to walking to a balcony and threatening to jump off after his told him she wishes he were . He reports that he took the excessive Benadryl for insomnia. He reports depressed mood and anxiety. +Poor sleep. Normal appetite. No AH/VH/paranoia/delusions. He is not agreeable to voluntary psychiatric admission at this time. PPHx: No acute psychiatric treatment; admits to intentional overdose 3 months ago SHx: Drinks 1 or less drinks/day; no cig; lives w/ ; 2 kids; works in finance ALL: [employer] MSE: A + O x 3, calm, cooperative, good eye contact, speech normal, mood/affect- depressed, thought process- linear/coherent, thought content- no delusions, denies AH/VH/SI/HI; poor I/J Impression: 43 yo male w/ h/o intentional overdose, now presents after makes threats to kill himself. He is not agreeable to voluntary psychiatric admission at this time. Recommendations: -Screen for involuntary psychiatric admission -Continue 1:1 for safety Past Patient History - Tetanus Immunizations Tetanus Immunization: Unknown - Past Medical History & Family History Past Medical History?: No - Past Social History Smoking Status: Never Smoked - CARDIAC Hx Cardiac Disorders: No - PULMONARY Hx Respiratory Disorders: No - NEUROLOGICAL Hx Neurological Disorder: No - HEENT Hx HEENT Problems: No - RENAL Hx Chronic Kidney Disease: No - ENDOCRINE/METABOLIC Hx Endocrine Disorders: No - HEMATOLOGICAL/ONCOLOGICAL Hx Blood Disorders: No - INTEGUMENTARY Hx Dermatological Problems: No - MUSCULOSKELETAL/RHEUMATOLOGICAL Hx Musculoskeletal Disorders: No Hx Falls: No - GASTROINTESTINAL Hx Gastrointestinal Disorders: Yes Hx Gastroesophageal Reflux: Yes - GENITOURINARY/GYNECOLOGICAL Hx Genitourinary Disorders: No - PSYCHIATRIC Hx Psychophysiologic Disorder: Yes Hx Anxiety: Yes Hx Depression: Yes Hx Substance Use: No - SURGICAL HISTORY Hx Surgeries: Yes Hx Cholecystectomy: Yes Other/Comment: as per pt: cardiac ablation (1993) - ANESTHESIA Hx Anesthesia: Yes Hx Anesthesia Reactions: No Meds Allergies/Adverse Reactions: Allergies Allergy/AdvReac Type Severity Reaction Status Date / Time No Known Allergies Allergy Verified 05/20/18 12:49 - Medications Medications: Current Medications Enoxaparin Sodium (Lovenox) 40 mg SC DAILY [facility] PRN Reason: Protocol Folic Acid (Folic Acid) 1 mg PO DAILY [facility] Sodium Chloride (Sodium Chloride 0.9%) 1,000 mls @ 999 mls/hr IV .Q1H1M [facility] Stop: 05/23/18 01:35 Thiamine HCl (Vitamin B1 Inj) 100 mg IM DAILY [facility] Results - Vital Signs Recent Vital Signs: Last Vital Signs Temp 98.2 F 05/22/18 04:50 Pulse 116 H 05/22/18 05:00 Resp 16 05/22/18 05:00 BP 114/83 05/22/18 04:50 Pulse Ox 95 05/22/18 05:00 - Labs Result Diagrams: 05/22/18 04:20 05/22/18 04:20 Labs: Laboratory Results - last 24 hr 05/21/18 05/21/18 05/21/18 20:12 20:12 20:12 WBC 10.8 RBC 5.39 Hgb 16.6 D Hct 48.3 MCV 89.5 D MCH 30.8 MCHC 34.4 RDW 13.3 Plt Count 317 D MPV 7.1 L Neut % (Auto) 77.0 H Lymph % (Auto) 18.2 L [place] % (Auto) 4.3 Eos % (Auto) 0.2 Baso % (Auto) 0.3 Neut # (Auto) 8.3 H Lymph # (Auto) 2.0 [place] # (Auto) 0.5 Eos # (Auto) 0.0 Baso # (Auto) 0.0 PT INR APTT pO2 VBG pH VBG pCO2 VBG HCO3 VBG Total CO2 VBG O2 Sat (Calc) VBG Base Excess VBG Potassium Glucose Lactate FiO2 Crit Value Called To Crit Value Called By Crit Value Read Back Blood Gas Notified Time Sodium 141 Potassium 3.9 Chloride 104 Carbon Dioxide 21 L Anion Gap 20 BUN 17 Creatinine 1.0 Est GFR ( Amer) > 60 Est GFR (Non-Af Amer) > 60 Random Glucose 103 Calcium 9.1 Phosphorus 3.3 Magnesium 1.8 Total Bilirubin 0.9 AST 36 ALT 43 Alkaline Phosphatase 66 Troponin I < 0.0120 Total Protein 7.8 Albumin 4.8 Globulin 2.9 Albumin/Globulin Ratio 1.6 TSH 3rd Generation 1.03 Venous Blood Potassium Salicylates < 1.0 Acetaminophen < 10.0 L Alcohol, Quantitative 05/21/18 05/21/18 05/21/18 20:12 20:25 21:55 WBC RBC Hgb Hct MCV MCH MCHC RDW Plt Count MPV Neut % (Auto) Lymph % (Auto) [place] % (Auto) Eos % (Auto) Baso % (Auto) Neut # (Auto) Lymph # (Auto) [place] # (Auto) Eos # (Auto) Baso # (Auto) PT 11.1 INR 1.0 APTT 25.7 pO2 63 H VBG pH 7.40 VBG pCO2 38 L VBG HCO3 23.9 VBG Total CO2 24.7 VBG O2 Sat (Calc) 95.1 H VBG Base Excess -1.1 L VBG Potassium 3.8 Glucose 106 Lactate 3.7 H FiO2 21.0 Crit Value Called To Crit Value Called By Crit Value Read Back Blood Gas Notified Time Sodium 140.0 Potassium Chloride 101.0 Carbon Dioxide Anion Gap BUN Creatinine Est GFR ( Amer) Est GFR (Non-Af Amer) Random Glucose Calcium Phosphorus Magnesium Total Bilirubin AST ALT Alkaline Phosphatase Troponin I Total Protein Albumin Globulin Albumin/Globulin Ratio TSH 3rd Generation Venous Blood Potassium 3.8 Salicylates Acetaminophen Alcohol, Quantitative 157 H 05/22/18 05/22/18 05/22/18 01:05 01:38 04:20 WBC 15.5 H RBC 4.89 Hgb 15.1 Hct 44.1 MCV 90.3 MCH 31.0 MCHC 34.3 RDW 13.4 Plt Count 260 MPV Neut % (Auto) Lymph % (Auto) [place] % (Auto) Eos % (Auto) Baso % (Auto) Neut # (Auto) Lymph # (Auto) [place] # (Auto) Eos # (Auto) Baso # (Auto) PT INR APTT pO2 59 H VBG pH 7.37 VBG pCO2 37 L VBG HCO3 22.1 VBG Total CO2 22.5 VBG O2 Sat (Calc) 94.0 H VBG Base Excess -3.4 L VBG Potassium 4.0 Glucose 89 Lactate 4.4 H* FiO2 21.0 Crit Value Called To Eleni christianson md Crit Value Called By 333 Crit Value Read Back Y Blood Gas Notified Time 110 Sodium 137.0 139 Potassium 4.1 Chloride 103.0 106 Carbon Dioxide 17 L Anion Gap 20 BUN 14 Creatinine 0.9 Est GFR ( Amer) > 60 Est GFR (Non-Af Amer) > 60 Random Glucose 87 Calcium 8.9 Phosphorus Magnesium Total Bilirubin 0.9 AST 56 ALT 51 Alkaline Phosphatase 59 Troponin I Total Protein 7.1 Albumin 4.4 Globulin 2.7 Albumin/Globulin Ratio 1.6 TSH 3rd Generation Venous Blood Potassium 4.0 Salicylates Acetaminophen Alcohol, Quantitative 05/22/18 04:20 WBC RBC Hgb Hct MCV MCH MCHC RDW Plt Count MPV Neut % (Auto) Lymph % (Auto) [place] % (Auto) Eos % (Auto) Baso % (Auto) Neut # (Auto) Lymph # (Auto) [place] # (Auto) Eos # (Auto) Baso # (Auto) PT INR APTT pO2 VBG pH VBG pCO2 VBG HCO3 VBG Total CO2 VBG O2 Sat (Calc) VBG Base Excess VBG Potassium Glucose Lactate FiO2 Crit Value Called To Crit Value Called By Crit Value Read Back Blood Gas Notified Time Sodium 138 Potassium 4.1 Chloride 106 Carbon Dioxide 22 Anion Gap 14 BUN 13 Creatinine 0.8 Est GFR ( Amer) > 60 Est GFR (Non-Af Amer) > 60 Random Glucose 85 Calcium 8.7 Phosphorus Magnesium Total Bilirubin AST ALT Alkaline Phosphatase Troponin I Total Protein Albumin Globulin Albumin/Globulin Ratio TSH 3rd Generation Venous Blood Potassium Salicylates Acetaminophen Alcohol, Quantitative
--- NOTE | 2018-05-22 08:43 | RAD ---
Date of service: 05/22/2018 HISTORY: leukocytosis, lethargic , alcoholic COMPARISON: 03/01/2018. FINDINGS: LUNGS: The lungs are well inflated and clear. PLEURA: No significant pleural effusion identified, no pneumothorax apparent. CARDIOVASCULAR: Normal. OSSEOUS STRUCTURES: No significant abnormalities. VISUALIZED UPPER ABDOMEN: Normal. OTHER FINDINGS: None. IMPRESSION: No active pulmonary disease.
[2018-05-22 08:45] LABS: OPIATES, UR NEGATIVE (NEGATIVE); PHENCYCLIDINE, UR NEGATIVE (NEGATIVE)
[2018-05-22 08:47] LABS: BARBITURATES, UR NEGATIVE (NEGATIVE); BENZODIAZEPINES, UR NEGATIVE (NEGATIVE)
--- NOTE | 2018-05-22 08:47 | CARD ---
APPROVED REPORT Date of service: 05/22/2018 EKG Measurement Heart [id number] [id number] <Conclusion> Sinus tachycardia IVCD abnormal ecg
[2018-05-22] MEDS ORDERED: Enoxaparin 40 mg Syringe SC SCH (09:00)
--- NOTE | 2018-05-22 09:15 | CARD ---
APPROVED REPORT Date of service: 05/21/2018 <Conclusion> Sinus tachycardia Otherwise normal ECG
--- NOTE | 2018-05-22 09:15 | CARD ---
APPROVED REPORT Date of service: 05/21/2018 <Conclusion> Sinus tachycardia Otherwise normal ECG
[2018-05-22] MEDS: Thiamine 100 mg/ml Inj IM SCH (10:10)
[2018-05-22 11:25] LABS: HEMOGLOBIN 14.9 g/dL (12.0-18.0); MEAN CELL VOLUME 88.5 fl (80.0-94.0); MEAN CORPUSCULAR HEMOGLOBIN 31.4 pg (27.0-31.0); MEAN CORPUSCULAR HGB CONC 35.4 g/dL (33.0-37.0); RBC 4.76 Mil/uL (4.40-5.90); RED CELL DISTRIBUTION WIDTH 12.9 % (11.5-14.5); WHITE BLOOD COUNT 11.4 K/uL (4.8-10.8)
--- NOTE | 2018-05-22 12:25 | CT ---
Date of service: 05/22/2018 PROCEDURE: CT HEAD WITHOUT CONTRAST. HISTORY: AMS COMPARISON: 03/01/2018. TECHNIQUE: Axial computed tomography images were obtained through the head/brain without intravenous contrast. Radiation dose: Total exam DLP = 982.64 mGy-cm. This CT exam was performed using one or more of the following dose reduction techniques: Automated exposure control, adjustment of the mA and/or kV according to patient size, and/or use of iterative reconstruction technique. FINDINGS: HEMORRHAGE: No intracranial hemorrhage. BRAIN: There are mild chronic microangiopathic changes. There is no mass, mass effect or abnormal extra-axial fluid collection. There is no territorial infarction. The midline sagittal structures are normal. VENTRICLES: The ventricles are normal in size, shape and configuration. CALVARIUM: The skull base and calvarium are normal. PARANASAL SINUSES: There is a retention cyst/polyp in the right maxillary sinus. The remaining included paranasal sinuses are clear. MASTOID AIR CELLS: Predominantly clear. OTHER FINDINGS: None. IMPRESSION: No acute intracranial abnormality.
[2018-05-22] MEDS ORDERED: Sodium Chloride 0.9% 500 ML IV ONE (13:25)
[2018-05-22] MEDS: Sodium Chloride 0.9% 1,000 ML IV SCH (14:28)
--- NOTE | 2018-05-22 15:54 | CARD ---
APPROVED REPORT Date of service: 05/22/2018 EKG Measurement Heart [id number] [place] [id number] [id number] <Conclusion> Normal sinus rhythm Normal ECG
[2018-05-23 04:46] VITALS: RESP 18
[2018-05-23] MEDS: Sodium Chloride 0.9% 1,000 ML IV SCH (06:13)
[2018-05-23 09:01] LABS: URINE BILIRUBIN NEGATIVE (NEGATIVE); URINE BLOOD NEGATIVE (NEGATIVE); URINE CLARITY CLEAR (Clear); URINE COLOR YELLOW (YELLOW); URINE GLUCOSE (UA) 50 mg/dL (Normal); URINE LEUKOCYTE ESTERASE NEG Leu/uL (Negative); URINE PROTEIN NEGATIVE (NEGATIVE); URINE UROBILINOGEN 0.2-1.0 mg/dL (0.2-1.0)
[2018-05-23] MEDS: Thiamine 100 mg/ml Inj IM SCH (09:14)
--- NOTE | 2018-05-23 10:10 | CP.PCM.PN ---
Subjective - Date & Time of Evaluation Date of Evaluation: 05/23/18 Time of Evaluation: 10:08 - Subjective Subjective: no complaints this morning hd stable nad Objective - Vital Signs/Intake and Output Vital Signs (last 24 hours): Temp Pulse Resp BP Pulse Ox 97.9 F 89 18 126/78 98 05/23/18 08:01 05/23/18 08:01 05/23/18 08:01 05/23/18 08:01 05/23/18 08:01 Intake and Output: Vitals Reviewed GEN: WDWN, alert, cooperative HEENT: NCAT, PERRL, EOMI HEART: RRR, +S1S2, NO MRG LUNG: CTAB, NO WRR ABD: soft, NT, ND, No HSM, No masses EXT: normal pedal pulses, normal capillary refill NEURO: awake, alert, no focal deficits SKIN: warm, dry PSYCH: normal mood, normal affect - Medications Medications: Current Medications Enoxaparin Sodium (Lovenox) 40 mg SC DAILY [facility] PRN Reason: Protocol Folic Acid (Folic Acid) 1 mg PO DAILY [facility] Last Admin: 05/23/18 09:13 Dose: 1 mg Sodium Chloride (Sodium Chloride 0.9%) 1,000 mls @ 125 mls/hr IV .Q8H [facility] Stop: 05/23/18 13:26 Last Admin: 05/23/18 06:13 Dose: Not Given Thiamine HCl (Vitamin B1 Inj) 100 mg IM DAILY [facility] Last Admin: 05/23/18 09:14 Dose: 100 mg - Labs Labs: 05/22/18 11:13 05/22/18 04:20 PT 11.1 Seconds (9.8-13.1) 05/21/18 20:12 INR 1.0 05/21/18 20:12 APTT 25.7 Seconds (25.6-37.1) 05/21/18 20:12 Assessment and Plan - Assessment and Plan (Free Text) Plan: 43yo male PMH overdose 3 months ago was brought to ED via EMS after ingesting an unknown amount of unknown pills. Per EMS did not wish to accompany patient to hospital; called, no answer. Patient is currently very poor historian, awake and answers "I don't know" to most questions and appears dazed with dilated pupils. UDS still pending, QTc prolonged on EKG. Patient to be placed on OBS for substance overdose, ETOH intoxication, and QTc prolongation. Psychiatry consult appreciated. Pt is reported to be on "psych meds" however it is unknown what medications. Tachycardic but stable. NAD. Substance Overdose Suicide Attempt? Etoh Intoxication QTc Prolongation resolved - monitor on telemetry, tachycardic - UDS pending - ETOH 157 - Psych consult appreciated, medically stable for inpatient psych - 1:1 observation - lovenox DVT ppx - avoid QT prolongation drugs
[2018-05-23 12:18] VITALS: BP 135/84; PULSE 88; TEMP 98.5; O2SAT 97
--- NOTE | 2018-05-23 15:11 | CP.PCM.DIS ---
Provider - Provider Date of Admission: 05/21/18 23:39 Attending physician: Erika Birmingham DO Time Spent in preparation of Discharge (in minutes): 30 Hospital Course - Lab Results Lab Results: Most Recent Lab Values WBC 11.4 K/uL (4.8-10.8) H 05/22/18 11:13 RBC 4.76 Mil/uL (4.40-5.90) 05/22/18 11:13 Hgb 14.9 g/dL (12.0-18.0) 05/22/18 11:13 Hct 42.1 % (35.0-51.0) 05/22/18 11:13 MCV 88.5 fl (80.0-94.0) 05/22/18 11:13 MCH 31.4 pg (27.0-31.0) H 05/22/18 11:13 MCHC 35.4 g/dL (33.0-37.0) 05/22/18 11:13 RDW 12.9 % (11.5-14.5) 05/22/18 11:13 Plt Count 253 K/uL (130-400) 05/22/18 11:13 MPV 7.1 fl (7.2-11.7) L 05/21/18 20:12 Neut % (Auto) 77.0 % (50.0-75.0) H 05/21/18 20:12 Lymph % (Auto) 18.2 % (20.0-40.0) L 05/21/18 20:12 [place] % (Auto) 4.3 % (0.0-10.0) 05/21/18 20:12 Eos % (Auto) 0.2 % (0.0-4.0) 05/21/18 20:12 Baso % (Auto) 0.3 % (0.0-2.0) 05/21/18 20:12 Neut # (Auto) 8.3 K/uL (1.8-7.0) H 05/21/18 20:12 Lymph # (Auto) 2.0 K/uL (1.0-4.3) 05/21/18 20:12 [place] # (Auto) 0.5 K/uL (0.0-0.8) 05/21/18 20:12 Eos # (Auto) 0.0 K/uL (0.0-0.7) 05/21/18 20:12 Baso # (Auto) 0.0 K/uL (0.0-0.2) 05/21/18 20:12 PT 11.1 Seconds (9.8-13.1) 05/21/18 20:12 INR 1.0 05/21/18 20:12 APTT 25.7 Seconds (25.6-37.1) 05/21/18 20:12 pO2 59 mm/Hg (30-55) H 05/22/18 01:05 VBG pH 7.37 (7.32-7.43) 05/22/18 01:05 VBG pCO2 37 mmHg (40-60) L 05/22/18 01:05 VBG HCO3 22.1 mmol/L 05/22/18 01:05 VBG Total CO2 22.5 mmol/L (22-28) 05/22/18 01:05 VBG O2 Sat (Calc) 94.0 % (40-65) H 05/22/18 01:05 VBG Base Excess -3.4 mmol/L (0.0-2.0) L 05/22/18 01:05 VBG Potassium 4.0 mmol/L (3.6-5.2) 05/22/18 01:05 Sodium 137.0 mmol/L (132-148) 05/22/18 01:05 Chloride 103.0 mmol/L (98-107) 05/22/18 01:05 Glucose 89 mg/dL (75-110) 05/22/18 01:05 Lactate 4.4 mmol/L (0.7-2.1) H* 05/22/18 01:05 FiO2 21.0 % 05/22/18 01:05 Crit Value Called To Eleni christianson md 05/22/18 01:05 Crit Value Called By Tung 05/22/18 01:05 Crit Value Read Back Y 05/22/18 01:05 Blood Gas Notified Time 110 05/22/18 01:05 Sodium 138 mmol/l (132-148) 05/22/18 04:20 Potassium 4.1 MMOL/L (3.6-5.0) 05/22/18 04:20 Chloride 106 mmol/L (98-107) 05/22/18 04:20 Carbon Dioxide 22 mmol/L (22-30) 05/22/18 04:20 Anion Gap 14 (10-20) 05/22/18 04:20 BUN 13 mg/dl (9-20) 05/22/18 04:20 Creatinine 0.8 mg/dl (0.8-1.5) 05/22/18 04:20 Est GFR ( Amer) > 60 05/22/18 04:20 Est GFR (Non-Af Amer) > 60 05/22/18 04:20 Random Glucose 85 mg/dL (75-110) 05/22/18 04:20 Lactic Acid 1.3 MMOL/L (0.7-2.1) 05/22/18 11:13 Calcium 8.7 mg/dL (8.4-10.2) 05/22/18 04:20 Phosphorus 3.3 mg/dl (2.5-4.5) 05/21/18 20:12 Magnesium 1.8 MG/DL (1.6-2.3) 05/21/18 20:12 Total Bilirubin 0.9 mg/dl (0.2-1.3) 05/22/18 01:38 AST 56 U/L (17-59) 05/22/18 01:38 ALT 51 U/L (21-72) 05/22/18 01:38 Alkaline Phosphatase 59 U/L (38-126) 05/22/18 01:38 Troponin I < 0.0120 ng/mL (0.00-0.120) 05/21/18 20:12 Total Protein 7.1 G/DL (6.3-8.2) 05/22/18 01:38 Albumin 4.4 g/dL (3.5-5.0) 05/22/18 01:38 Globulin 2.7 gm/dL (2.2-3.9) 05/22/18 01:38 Albumin/Globulin Ratio 1.6 (1.0-2.1) 05/22/18 01:38 TSH 3rd Generation 1.03 mIU/ML (0.46-4.68) 05/21/18 20:12 Venous Blood Potassium 4.0 mmol/L (3.6-5.2) 05/22/18 01:05 Urine Color Yellow (YELLOW) 05/23/18 08:52 Urine Clarity Clear (Clear) 05/23/18 08:52 Urine pH 7.0 (5.0-8.0) 05/23/18 08:52 Ur Specific [place] 1.010 (1.003-1.030) 05/23/18 08:52 Urine Protein Negative mg/dL (NEGATIVE) 05/23/18 08:52 Urine Glucose (UA) 50 mg/dL (Normal) 05/23/18 08:52 Urine Ketones Negative mg/dL (NEGATIVE) 05/23/18 08:52 Urine Blood Negative (NEGATIVE) 05/23/18 08:52 Urine Nitrate Negative (NEGATIVE) 05/23/18 08:52 Urine Bilirubin Negative (NEGATIVE) 05/23/18 08:52 Urine Urobilinogen 0.2-1.0 mg/dL (0.2-1.0) 05/23/18 08:52 Ur Leukocyte Esterase Neg [place]/uL (Negative) 05/23/18 08:52 Urine RBC (Auto) < 1 /hpf (0-3) 05/23/18 08:52 Salicylates < 1.0 mg/dl 05/21/18 20:12 Urine Opiates Screen Negative (NEGATIVE) 05/22/18 04:00 Urine Methadone Screen Negative (NEGATIVE) 05/22/18 04:00 Acetaminophen < 10.0 ug/ml (10.0-30.0) L 05/21/18 20:12 Ur Barbiturates Screen Negative (NEGATIVE) 05/22/18 04:00 Ur Phencyclidine Scrn Negative (NEGATIVE) 05/22/18 04:00 Ur Amphetamines Screen Negative (NEGATIVE) 05/22/18 04:00 U Benzodiazepines Scrn Negative (NEGATIVE) 05/22/18 04:00 U Oth Cocaine Metabols Negative (NEGATIVE) 05/22/18 04:00 U Cannabinoids Screen Negative (NEGATIVE) 05/22/18 04:00 Alcohol, Quantitative 157 mg/dl (0-10) H 05/21/18 21:55 - Hospital Course Hospital Course: 43yo male PMH overdose 3 months ago was brought to ED via EMS after ingesting an unknown amount of unknown pills. Per EMS did not wish to accompany patient to hospital; called, no answer. Patient is currently very poor historian, awake and answers "I don't know" to most questions and appears dazed with dilated pupils. UDS still pending, QTc prolonged on EKG. Patient to be placed on OBS for substance overdose, ETOH intoxication, and QTc prolongation. Psychiatry consult appreciated. Pt is reported to be on "psych meds" however it is unknown what medications. Tachycardic but stable. NAD. DISCHARGE to PSYCH in stable medical condition. Substance Overdose Suicide Attempt? Etoh Intoxication QTc Prolongation resolved - monitor on telemetry, tachycardic - UDS pending - ETOH 157 - Psych consult appreciated, medically stable for inpatient psych - 1:1 observation - lovenox DVT ppx - avoid QT prolongation drugs Discharge Exam - Head Exam Head Exam: ATRAUMATIC, NORMOCEPHALIC - Eye Exam Eye Exam: EOMI, Normal appearance - ENT Exam ENT Exam: Mucous Membranes Moist, Normal Oropharynx - Neck Exam Neck exam: Full Rom, Normal Inspection - Respiratory Exam Respiratory Exam: Clear to PA & Lateral, NORMAL BREATHING PATTERN - Cardiovascular Exam Cardiovascular Exam: RRR, +S1, +S2 - GI/Abdominal Exam GI & Abdominal Exam: Normal Bowel Sounds, Soft - Extremities Exam Extremities exam: normal capillary refill, pedal pulses present - Neurological Exam Neurological exam: Alert, Oriented x3 - Psychiatric Exam Psychiatric exam: Normal Affect, Normal Mood - Skin Skin Exam: Dry, Warm Discharge Plan - Follow Up Plan Condition: GOOD Disposition: DISCHARGE TO PSYCH HOSPITAL Instructions: Suicide Prevention for Adults (DC), Suicide Prevention for Adults (GEN)
--- NOTE | 2018-05-24 18:54 | CARD ---
APPROVED REPORT Date of service: 05/22/2018 <Conclusion> Normal sinus rhythm Normal ECG
== END 2018-05-23 15:20 | DRG 449 ==
LOC: H.ER 19:37 → H.ERHOLD 23:39 → H.TEL 05-22 02:59
PROVIDERS: ADMIT Student in an Organized Health Care Education/Training Program; ATTEND Student in an Organized Health Care Education/Training Program
DX: T45.0X4A Poisoning by antiallergic and antiemetic drugs, undetermined, initial encounter (principal); E87.2 Acidosis; I45.81 Long QT syndrome; Y90.6 Blood alcohol level of 120-199 mg/100 ml; F10.129 Alcohol abuse with intoxication, unspecified; F32.9 Major depressive disorder, single episode, unspecified; D72.829 Elevated white blood cell count, unspecified

== ENCOUNTER 2018-05-23 15:38 | Inpatient (IN) | payer OTHER ==
[2018-05-23 16:25] VITALS: BMI 27.6
--- NOTE | 2018-05-23 18:01 | PCM.BM ---
Treatment Plan Problems - Problems identified on initial assessmt FEELINGS OF WORTHLESSNESS Date Initiated: 05/23/18 Time Initiated: 18:03 Assessment reference: NA Status: Active Treatment assets and liabiliti Patient Assests: adapts well, cooperative, resourceful, self-reliant, ADL independent Patient Liabilities: financial problems, poor support system, relationship conflicts - Milieu Protocol Maintain good personal hygiene: daily Encourage regular showers, daily Remind patient to perform daily oral care, daily Assist patient to perform ADL's Conduct patient checks and document Observation sheet: Q15 minutes Maintain personal safety: every shift Educate patient to report safety concerns to staff, every shift Monitor environment for contraband/sharps Medication safety: Monitor for expected outcome, potential side effects: every shift, Assess barriers to learning: every shift, Assess readiness for medication education: every shift
[2018-05-23] MEDS ORDERED: DiphenhydrAMINE 50 mg/ml Inj IM PRN (18:21)
[2018-05-23] MEDS ORDERED: Magnesium Hydroxide Susp 30 ml UD PO PRN (18:40)
[2018-05-23] MEDS ORDERED: Alum-Mag Hydrox-Simethicone Susp (30 mL) PO PRN (18:41)
[2018-05-24 07:48] LABS: T4 10.1 ug/dl (5.5-11.0)
[2018-05-24 08:02] LABS: T3 1.36 nmol/L (1.49-2.60)
--- NOTE | 2018-05-24 11:37 | CP.PCM.CON ---
History of Present Illness - History of Present Illness History of Present Illness: reason for consult: hospital protocol 43yo male PMH overdose 3 months ago was brought to ED via EMS after ingesting an unknown amount of unknown pills. Per EMS did not wish to accompany patient to hospital; called, no answer. Patient is currently very poor historian, awake and answers "I don't know" to most questions and appears dazed with dilated pupils. UDS still pending, QTc prolonged on EKG. Patient to be placed on OBS for substance overdose, ETOH intoxication, and QTc prolongation. Pt is reported to be on "psych meds" however it is unknown what medications. Patient was admitted and medically cleared for admit to PSYCH in stable medical condition. ROS: per HPI all other systems reviewed and negative Past Patient History - Tetanus Immunizations Tetanus Immunization: Unknown - Past Medical History & Family History Past Medical History?: No - Past Social History Smoking Status: Never Smoked - CARDIAC Hx Cardiac Disorders: Yes Hx Atrial Fibrillation: Yes - PULMONARY Hx Respiratory Disorders: No - NEUROLOGICAL Hx Neurological Disorder: No - HEENT Hx HEENT Problems: No - RENAL Hx Chronic Kidney Disease: No - ENDOCRINE/METABOLIC Hx Endocrine Disorders: No - HEMATOLOGICAL/ONCOLOGICAL Hx Blood Disorders: No - INTEGUMENTARY Hx Dermatological Problems: No - MUSCULOSKELETAL/RHEUMATOLOGICAL Hx Musculoskeletal Disorders: No Hx Falls: No - GASTROINTESTINAL Hx Gastrointestinal Disorders: No - GENITOURINARY/GYNECOLOGICAL Hx Genitourinary Disorders: No - PSYCHIATRIC Hx Psychophysiologic Disorder: Yes Hx Anxiety: Yes Hx Depression: Yes Hx Substance Use: No - SURGICAL HISTORY Hx Surgeries: Yes Hx Cholecystectomy: Yes Other/Comment: as per pt: cardiac ablation (1993) - ANESTHESIA Hx Anesthesia: Yes Hx Anesthesia Reactions: No Meds Allergies/Adverse Reactions: Allergies Allergy/AdvReac Type Severity Reaction Status Date / Time No Known Allergies Allergy Verified 05/20/18 12:49 - Medications Medications: Current Medications Acetaminophen (Tylenol 325mg Tab) 650 mg PO Q6 PRN PRN Reason: pain 4 -9 Al Hydrox/Mg Hydrox/Simethicone (Maalox Plus 30 Ml) 30 ml PO Q6 PRN PRN Reason: Indigestion / Heartburn Diphenhydramine HCl (Benadryl) 50 mg PO Q6 PRN PRN Reason: eps Diphenhydramine HCl (Benadryl) 50 mg IM Q6 PRN PRN Reason: EPS if can not swallow Diphenhydramine HCl (Benadryl) 50 mg PO HS PRN PRN Reason: Sleep Last Admin: 05/23/18 21:43 Dose: 50 mg Haloperidol (Haldol) 5 mg PO Q4 PRN PRN Reason: Agitation Haloperidol Lactate (Haldol) 5 mg IM Q4 PRN PRN Reason: severe agitation Lorazepam (Ativan) 2 mg PO Q4 PRN PRN Reason: Agitation Lorazepam (Ativan) 2 mg IM Q4 PRN PRN Reason: severe agitation Magnesium Hydroxide (Milk Of Magnesia) 30 ml PO HS PRN PRN Reason: Constipation Physical Exam - Constitutional Additional comments: Vitals Reviewed GEN: WDWN, alert, cooperative HEENT: NCAT, PERRL, EOMI HEART: RRR, +S1S2, NO MRG LUNG: CTAB, NO WRR ABD: soft, NT, ND, No HSM, No masses EXT: normal pedal pulses NEURO: awake, alert SKIN: warm, dry PSYCH: normal mood, normal affect Results - Vital Signs Recent Vital Signs: Last Vital Signs Temp 97.5 F L 05/24/18 09:18 Pulse 96 H 05/24/18 09:18 Resp 20 05/24/18 09:18 BP 138/90 05/24/18 09:18 Pulse Ox - Labs Labs: Laboratory Results - last 24 hr 05/24/18 06:20 Thyroxine (T4) 10.1 Total T3 1.36 L TSH 3rd Generation 2.99 Assessment & Plan - Assessment and Plan (Free Text) Plan: 43yo male PMH overdose 3 months ago was brought to ED via EMS after ingesting an unknown amount of unknown pills. Per EMS did not wish to accompany patient to hospital; called, no answer. Patient is currently very poor historian, awake and answers "I don't know" to most questions and appears dazed with dilated pupils. UDS still pending, QTc prolonged on EKG. Patient to be placed on OBS for substance overdose, ETOH intoxication, and QTc prolongation. Pt is reported to be on "psych meds" however it is unknown what medications. Patient medically cleared for admit to PSYCH in stable medical condition. Substance Overdose Suicide Attempt? Etoh Intoxication QTc Prolongation resolved - monitor on telemetry, tachycardic - UDS pending - ETOH 157 - Psych consult appreciated, medically stable for inpatient psych - 1:1 observation - lovenox DVT ppx - avoid QT prolongation drugs
--- NOTE | 2018-05-24 14:56 | PCM.PSYCH ---
Initial Psychiatric Evaluation - Initial Psychiatric Evaluation Type of Admission: Voluntary Legal Status: Capacity Chief Complaint (in patient's own words): I have a lot of problems Patient's Reaction to Hospitalization: pt requested help History of Present Illness and Precipitating Events: pt is 43 ys old male with previous diagnosis of alcohol abuse, depression and anxiety,history of one previous suicidal attempt three months ago by overdose on medications (Xanax and benadryl) brought to ER after his called 911 resulting from pt walking to a balcony and making verbal threats to kill himself and taking 4 tablets of benadryl (25 mg x 4 tablets) as per patient report. pt reported having multiple stressors, including financial difficulties , and recent conflict with his as she thought he was cheating on her and asked him to leave the house and intending to file for divorce pt relapsed on alcohol and overdosed on benadryl which he used for poor sleep while intoxicated pt on unit presenting with depressed mood , feeling hopeless and helpless as this would be his second divorce, reported increase anxiety , passive suicidal ideation without active plan or intent on the unit, reported poor sleep with early insomnia denied any current perceptual disturbances Current Medications: Active Medications Generic Name Dose Route Start Last Admin Trade Name Freq PRN Reason Stop Dose Admin Acetaminophen 650 mg 05/23/18 18:39 Tylenol 325mg Tab PO Q6 PRN pain 4 -9 Al Hydrox/Mg Hydrox/Simethicone 30 ml 05/23/18 18:41 Maalox Plus 30 Ml PO Q6 PRN Indigestion / Heartburn Diphenhydramine HCl 50 mg 05/23/18 18:18 Benadryl PO Q6 PRN eps Diphenhydramine HCl 50 mg 05/23/18 18:21 Benadryl IM Q6 PRN EPS if can not swallow Diphenhydramine HCl 50 mg 05/23/18 21:12 05/23/18 21:43 Benadryl PO 50 mg HS PRN Administration Sleep Folic Acid 1 mg 05/25/18 09:00 Folic Acid PO DAILY CAROLE Gabapentin 100 mg 05/24/18 17:00 Neurontin PO TID CAROLE Haloperidol 5 mg 05/23/18 18:32 Haldol PO Q4 PRN Agitation Haloperidol Lactate 5 mg 05/23/18 18:33 Haldol IM Q4 PRN severe agitation Hydroxyzine Pamoate 50 mg 05/24/18 13:36 Vistaril PO Q8 PRN Anxiety Magnesium Hydroxide 30 ml 05/23/18 18:40 Milk Of Magnesia PO HS PRN Constipation Mirtazapine 7.5 mg 05/24/18 22:00 Remeron PO HS CAROLE Thiamine HCl 100 mg 05/25/18 09:00 Vitamin B1 Inj IM DAILY CAROLE Past Psychiatric History - Past Psychiatric History Explanation of prior treatment: pt has been seeing a therapist for anxiety and depression 8ys ago after first divorce , currently receiving family therapy History of ETOH/Drug Use: pt has histroy of alcohol use since age 18 History of Family Illness: mother hx of bipolar Pertinent Medical Hx (Current Medical&Sleep Prob, Allergies): Allergies Allergy/AdvReac Type Severity Reaction Status Date / Time No Known Allergies Allergy Verified 05/20/18 12:49 Folic Acid 1 mg PO DAILY tab 05/23/18 Thiamine [Vitamin B1 Inj] 100 mg IM DAILY vial 05/23/18 Mental Status Examination - Affect Affect: Constricted - Motor Activity Motor Activity: Psychomotor Retardation - Reliability in Providing Information Reliability in Providing Information: Fair - Speech Speech: Organized - Mood Mood: Depressed, Anxious - Obsessions/Compulsions Obsessions: No Compulsions: No - Cognitive Functions Orientation: Person, Place, Situation Sensorium: Alert Attention/Concentration: Attentive, Easily distracted Judgement: Imparied, as evidence by: Poor judgement, Imparied, as evidence by: Lack of insight into illness - Risk Risk: Suicidal, Withdrawal, Diminished functioning - Strength & Assets Inventory Strength & Assets Inventory: Family support - Limitations Additional comments: poor insight DSM 5 DX - DSM 5 DSM 5 Diagnosis: alcohol induced mood disorder with depressive features alcohol use disorder generalized anxiety disorder depression - Recommended/Plan of Treatment Treatment Recommendations and Plan of Treatment: start remeron 7.5 mg qhs for depression anxiety and insomnia start neurontin 100mg tid for anxiety CBT motivational and group therapy referral to rehab on discharge Projected ELOS: 7 days Prognosis: guarded
--- NOTE | 2018-05-25 08:50 | PCM.PYCHPN ---
Psychiatric Progress Note - Psychiatric Progress Note Patient seen today, length of contact: Patient evaluated, case discussed w/ team , chart reviewed Patient Chief Complaint: "I'm okay." Problems Identified/Issues Discussed: Patient reports that he continues to feel depressed, but that his mood is starting to improve. He denies acute SI/HI. Psychoeducation provided on the dangers of alcohol abuse. No current signs/symptoms of withdrawal. He discussed his concerns about having continued conflict with his upon discharge. He continues to report difficulty sleeping at night. We discussed titrating the Remeron. Medication Change: Yes (Increase Remeron to 15 mg PO HS) Medical Record Reviewed: Yes Consults ordered or reviewed: Medicine consult Mental Status Examination - Cognitive Function Orientation: Person, Place, Situation, Time Memory: Intact Attention: WNL Concentration: WNL Association: WNL Fund of Knowledge: [facility] Decription of patient's judgement and insights: Improving I/J - Mood Mood: Depressed, Anxious - Affect Affect: Constricted - Formal Thought Process Formal Thought Process: No Impairment Psychotic Thoughts and Behaviors: No AH/VH/paranoia/delusions - Suicidal Ideation Suicidal Ideation: No - Homicidal Ideation Homicidal Ideation: No Goal/Treatment Plan - Goal/Treatment Plan Need for Continued Stay: Remain at risks for inpatient hospitalization, Severe depression anxiety, Discharge may exacerbated symptoms Progress Toward Problem(s) and Goals/Treatment Plan: Alcohol Induced Mood Disorder vs Major Depressive Disorder; Generalized Anxiety Disorder -Increase Remeron to 15 mg PO HS -Individual and group therapy -Psychoeducation -Medicine consult -Disposition planning Estimated Date of D/C: 05/28/18
[2018-05-25] MEDS: Thiamine 100 mg/ml Inj IM SCH (09:23)
--- NOTE | 2018-05-26 07:57 | PCM.PYCHPN ---
Psychiatric Progress Note - Psychiatric Progress Note Patient seen today, length of contact: Patient evaluated, case discussed w/ team , chart reviewed Patient Chief Complaint: "I'm okay." Problems Identified/Issues Discussed: Patient reports that he feels less depressed. He denies acute SI/HI. He discussed his concerns about having continued conflict with his when he is discharged, but says that by phone he has not had any significant issues with her. He reports improved sleep. No adverse effects to medications reported. Medication Change: No Medical Record Reviewed: Yes Consults ordered or reviewed: Medicine consult Mental Status Examination - Cognitive Function Orientation: Person, Place, Situation, Time Memory: Intact Attention: WNL Concentration: WNL Association: WNL Fund of Knowledge: WN Decription of patient's judgement and insights: Improving I/J - Mood Mood: Depressed, Anxious - Affect Affect: Constricted - Speech Speech: Appropriate - Formal Thought Process Formal Thought Process: No Impairment Psychotic Thoughts and Behaviors: No AH/VH/paranoia/delusions - Suicidal Ideation Suicidal Ideation: No - Homicidal Ideation Homicidal Ideation: No Goal/Treatment Plan - Goal/Treatment Plan Need for Continued Stay: Severe depression anxiety, Discharge may exacerbated symptoms Progress Toward Problem(s) and Goals/Treatment Plan: Alcohol Induced Mood Disorder vs Major Depressive Disorder; Generalized Anxiety Disorder -Continue Remeron 15 mg PO HS -Individual and group therapy -Psychoeducation -Medicine consult -Disposition planning Estimated Date of D/C: 05/28/18
[2018-05-26] MEDS: Thiamine 100 mg/ml Inj IM SCH (08:54)
[2018-05-26 09:35] VITALS: RESP 18
[2018-05-27] MEDS: Thiamine 100 mg/ml Inj IM SCH (09:14)
--- NOTE | 2018-05-27 10:09 | PCM.PYCHPN ---
Psychiatric Progress Note - Psychiatric Progress Note Patient seen today, length of contact: Patient evaluated, case discussed w/ team , chart reviewed Patient Chief Complaint: "I'm okay." Problems Identified/Issues Discussed: Patient reports that he feels less depressed. He denies acute SI/HI. He discussed his concerns about having continued conflict with his when he is discharged, but says that by phone he has not had any significant issues with her. He reports improved sleep. No adverse effects to medications reported. Medication Change: No Medical Record Reviewed: Yes Mental Status Examination - Cognitive Function Orientation: Person, Place, Situation, Time Memory: Intact Attention: WNL Concentration: WNL Association: WNL Fund of Knowledge: [facility] Decription of patient's judgement and insights: Improving I/J - Mood Mood: Depressed, Anxious - Affect Affect: Constricted - Speech Speech: Appropriate - Formal Thought Process Formal Thought Process: No Impairment Psychotic Thoughts and Behaviors: No AH/VH/paranoia/delusions - Suicidal Ideation Suicidal Ideation: No - Homicidal Ideation Homicidal Ideation: No Goal/Treatment Plan - Goal/Treatment Plan Need for Continued Stay: Severe depression anxiety, Discharge may exacerbated symptoms Progress Toward Problem(s) and Goals/Treatment Plan: Alcohol Induced Mood Disorder vs Major Depressive Disorder; Generalized Anxiety Disorder -Continue Remeron 15 mg PO HS -Individual and group therapy -Psychoeducation -Medicine consult -Disposition planning Estimated Date of D/C: 05/28/18
[2018-05-27 10:25] VITALS: BP 142/91; PULSE 66; TEMP 97.3
--- NOTE | 2018-05-27 10:41 | PCM.PYCHDC ---
Mental Status Examination - Mental Status Examination Orientation: Person, Place, Situation, Time Memory: Intact Mood: Neutral Affect: Broad Speech: Appropriate Attention: WNL Concentration: WNL Association: WNL Fund of Knowledge: WNL Formal Thought Process: No Impairment Description of patient's judgement and insight: Fair I/J Psychotic Thoughts and Behaviors: No AH/VH/paranoia/delusions Suicidal Ideation: No Current Homicidal Ideation?: No Discharge Summary - Discharge Note Reason for Hospitalization: As per HPI: pt is 43 ys old male with previous diagnosis of alcohol abuse, depression and anxiety,history of one previous suicidal attempt three months ago by overdose on medications (Xanax and benadryl) brought to ER after his called 911 resulting from pt walking to a balcony and making verbal threats to kill himself and taking 4 tablets of benadryl (25 mg x 4 tablets) as per patient report. pt reported having multiple stressors, including financial difficulties , and recent conflict with his as she thought he was cheating on her and asked him to leave the house and intending to file for divorce pt relapsed on alcohol and overdosed on benadryl which he used for poor sleep while intoxicated pt on unit presenting with depressed mood , feeling hopeless and helpless as this would be his second divorce, reported increase anxiety , passive suicidal ideation without active plan or intent on the unit, reported poor sleep with early insomnia denied any current perceptual disturbances Consultations:: List each consultation separately and include: 1. Reason for request. 2. Findings. 3. Follow-up Consultations: Medicine consult Summary of Hospital Course include:: 1. Description of specific treatment plan utilized for patients during their course of treatmen. 2. Summarize the time- course for resolution of acute symptoms and/or regressed behaviors. 3. Describe issues identified and worked on during hospitalization. 4. Describe medication utilized. 5. Describe medical problems identified and treated. 6. Reassessment of suicide risk Summary of Hospital Course: Patient was admitted to the psychiatry unit. Individual and group therapy were provided. Patient was initially seen and evaluated on the medical unit, where he was treated for alcohol withdrawal, was monitored for safety and then transferred to the psychiatric unit where he was stabilized on Gabapentin and Remeron. Psychoeducation provided re: dangers of alcohol abuse. Patient requested to be discharged and does not meet criteria for involuntary commitment at this time. He denies acute AH/VH/SI/HI. He is psychiatrically stable for discharge. Case discussed w/ patient's who believes he is safe to be discharged today. Patient intends to start work again tomorrow. - Final Diagnosis (DSM 5) Condition upon Discharge: STABLE DSM 5: Alcohol Induced Mood Disorder Disposition: HOME/ ROUTINE Follow-up Treatment Plan: -Discharge to home Prescriptions/Medication Reconciliation: Gabapentin [Neurontin] 100 mg PO TID #90 cap Mirtazapine [Remeron] 15 mg PO HS #30 tab - Smoking Cessation Smoking Cessation Medication prescribed: No Reason for not providing: Not indicated - Antipsychotic Medications Pt discharged on 2 or more routine antipsychotic medications: No
== END 2018-05-27 13:50 | disposition home or self-care (01) | DRG 751 ==
LOC: H.PSYCH 16:26
PROVIDERS: ADMIT Psychiatry & Neurology Psychiatry; ATTEND Psychiatry & Neurology Psychiatry
PROC: HZ56ZZZ Individual Psychotherapy for Substance Abuse Treatment, Psychoeducation (ICD-10-PCS; principal; 2018-05-23)
PROC: GZHZZZZ Group Psychotherapy (ICD-10-PCS; 2018-05-23)
DX: F10.14 Alcohol abuse with alcohol-induced mood disorder (principal); F41.1 Generalized anxiety disorder; F10.129 Alcohol abuse with intoxication, unspecified; Y90.6 Blood alcohol level of 120-199 mg/100 ml; I45.81 Long QT syndrome; G47.00 Insomnia, unspecified; R45.851 Suicidal ideations